=== PATIENT | male | born 1980 | race Caucasian/White ===

== ENCOUNTER 2019-01-08 20:35 | Emergency (ER) | payer OTHER ==
[2019-01-08 20:41] VITALS: BP 137/81; PULSE 86; RESP 18; TEMP 97.9
--- NOTE | 2019-01-08 21:44 | ED ---
General Adult HPI - General Chief complaint: Skin/Abscess/Foreign Body Stated complaint: hemorrhoids Time Seen by Provider: 01/08/19 20:53 Source: patient, RN notes reviewed, old records reviewed Mode of arrival: ambulatory Limitations: no limitations - History of Present Illness Initial comments: 38-year-old male patient presents ED chief complaint hemorrhoids. Patient forces has been bothering him for approximately one week. Denies any other complaints. Systemic: Pt denies fatigue, fever/chills, rash. Pt denies weakness, night sweats, weight loss. Neuro: Pt denies headache, visual disturbances, syncope or pre-syncope. HEENT: Pt denies ocular discharge or irritation, otalgia, rhinorrhea, pharyngitis or notable lymphadenopathy. Cardiopulmonary: Pt denies chest pain, SOB, heart palpitations, dyspnea on exertion. Abdominal/GI: Pt denies abdominal pain, n/v/d. : Pt denies dysuria, burning w/ urination, frequency/urgency. Denies new onset urinary or bowel incontinence. MSK: Pt denies myalgia, loss of strength or function in extremities. Neuro: Pt denies new onset weakness, paresthesias. - Related Data Allergies Allergy/AdvReac Type Severity Reaction Status Date / Time No Known Allergies Allergy Verified 01/08/19 20:41 Review of Systems ROS Statement: Those systems with pertinent positive or pertinent negative responses have been documented in the HPI. ROS Other: All systems not noted in ROS Statement are negative. Past Medical History Past Medical History: No Reported History History of Any Multi-Drug Resistant Organisms: None Reported Past Surgical History: No Surgical Hx Reported Past Psychological History: No Psychological Hx Reported Smoking Status: Current every day smoker Past Alcohol Use History: Daily Past Drug Use History: None Reported General Exam - General Exam Comments Initial Comments: Constitutional: NAD, AOX3, Pt has pleasant affect. HEENT: NC/AT, trachea midline, neck supple, no lymphadenopathy. Posterior pharynx non erythematous, without exudates. External ears appear normal, without discharge. Mucous membranes moist. Eyes PERRLA, EOM intact. There is no scleral icterus. No pallor noted. Cardiopulmonary: RRR, no murmurs, rubs or gallops, no JVD noted. Lungs CTAB in anterior and posterior archer. No peripheral edema. Abdominal exam: Abdomen soft and non-distended. Abdomen non-tender to palpation in all 4 quadrants. Bowel sounds active in LLQ. No hepatosplenomegaly. No ecchymosis Neuro: CN II-XII grossly intact. No nuchal rigidity. No raccon eyes, no pires sign, no hemotympanum. No cervical spinal tenderness. MSK: No posterior calf tenderness bilaterally, homans sign negative bilaterally. Posterior tibialis and radial pulse +2 bilaterally. Sensation intact in upper and lower extremities. Full active ROM in upper and lower extremities, 5/5 stregnth. Rectal: One internal hemorrhoid, two external hemorrhoid is noted. Nonthrombosed. Nonbleeding. Limitations: no limitations Course Vital Signs 01/08/19 20:39 Temperature 97.9 F Pulse Rate 86 Respiratory 18 Rate Blood Pressure 137/81 O2 Sat by Pulse 100 Oximetry Medical Decision Making - Medical Decision Making 38-year-old male patient presents in ED with chief complaint of one week of painful hemorrhoids. Patient did have a grade 2 hemorrhoids approximately 3 years in the past. Patient vital signs are stable, afebrile. Physical exam displayed one internal hemorrhoid, 2 external hemorrhoids are noted. Patient advised high-fiber diet, stool softeners, sitz baths. Patient be discharged with close GI and surgery follow-up. Case discussed and patient seen by Dr. Dietz. Disposition Clinical Impression: External hemorrhoid, Internal hemorrhage Disposition: HOME SELF-CARE Condition: Stable Instructions (If sedation given, give patient instructions): Sitz Bath (DC) Additional Instructions: Follow-up with primary care provider, GI or Gen. surgery tomorrow. Recommend high-fiber diet. Colace or MiraLAX. Sitz bath. Return to ER if condition worsens. Is patient prescribed a controlled substance at d/c from ED?: No Referrals: Oriana Hermosillo MD [Primary Care Provider] - 1-2 days
--- NOTE | 2019-01-08 21:50 | ED ---
Disposition Clinical Impression: External hemorrhoid, Internal hemorrhage Disposition: HOME SELF-CARE Condition: Stable Instructions (If sedation given, give patient instructions): Sitz Bath (DC) Additional Instructions: Follow-up with primary care provider, GI or Gen. surgery tomorrow. Recommend high-fiber diet. Colace or MiraLAX. Sitz bath. Return to ER if condition worsens. Is patient prescribed a controlled substance at d/c from ED?: No Referrals: Oriana Hermosillo MD [Primary Care Provider] - 1-2 days Maria Elena Curry MD [STAFF PHYSICIAN] - 1-2 days Alistair Hayden MD [STAFF PHYSICIAN] - 1-2 days
== END 2019-01-08 21:59 | disposition home or self-care (01) ==
LOC: EC 20:35
DX: K64.4 Residual hemorrhoidal skin tags (principal); K64.8 Other hemorrhoids; F17.200 Nicotine dependence, unspecified, uncomplicated
CPT/HCPCS: 99283

== ENCOUNTER 2020-06-22 07:53 | Inpatient (IN) | payer OTHER ==
[2020-06-22] MEDS ORDERED: methylPREDNISolone SOD SUCCI 125 MG/2 ML VIAL IV STA (08:05)
[2020-06-22] MEDS ORDERED: diphenhydrAMINE 50 MG/ML 1 ML VIAL IVP STA (08:05)
[2020-06-22] MEDS ORDERED: FAMOTIDINE 20 MG/2 ML VIAL IV STA (08:05)
--- NOTE | 2020-06-22 08:12 | ED ---
General Adult HPI - General Chief complaint: ENT Stated complaint: Throat swelling Time Seen by Provider: 06/22/20 07:58 Source: patient, RN notes reviewed Mode of arrival: wheelchair Limitations: no limitations - History of Present Illness Initial comments: Patient is a pleasant 40-year-old male presenting to the emergency department with concerns for throat swelling. Onset of symptoms was this morning. Patient did recently start lisinopril, proximal he 4 days ago. Patient states it is difficult to talk. Patient states is difficult to swallow. Patient does feel like there is some mild shortness of breath secondary to the swelling. No swelling of the tongue or face. No history of similar symptoms previously. No fevers. Patient felt fine when he went to bed last night. - Related Data Home Medications Medication Instructions Recorded Confirmed Dextroamphetamine/Amphetamine 10 - 20 mg PO TID PRN 06/22/20 06/22/20 [Adderall] Allergies Allergy/AdvReac Type Severity Reaction Status Date / Time No Known Allergies Allergy Verified 06/22/20 09:10 Review of Systems ROS Statement: Those systems with pertinent positive or pertinent negative responses have been documented in the HPI. ROS Other: All systems not noted in ROS Statement are negative. Constitutional: Denies: fever Eyes: Denies: eye pain ENT: Reports: as per HPI. Denies: ear pain Respiratory: Denies: cough Cardiovascular: Denies: chest pain Endocrine: Denies: fatigue Gastrointestinal: Denies: abdominal pain Genitourinary: Denies: dysuria Musculoskeletal: Denies: back pain Skin: Denies: rash Neurological: Denies: weakness Past Medical History Past Medical History: No Reported History History of Any Multi-Drug Resistant Organisms: None Reported Past Surgical History: No Surgical Hx Reported Past Psychological History: No Psychological Hx Reported Past Alcohol Use History: Daily Past Drug Use History: None Reported General Exam Limitations: no limitations General appearance: alert Head exam: Present: atraumatic Eye exam: Present: normal appearance, PERRL ENT exam: Present: other (Patient does have angioedema of the posterior pharynx and uvula. Patient does have muffled voice and difficulty swallowing. No angioedema of the tongue or lips or face.) Neck exam: Present: normal inspection, other (No swelling of the submandibular or neck region.). Absent: tenderness Respiratory exam: Present: normal lung sounds bilaterally Cardiovascular Exam: Present: regular rate, normal rhythm GI/Abdominal exam: Present: soft. Absent: tenderness Extremities exam: Present: normal inspection Neurological exam: Present: alert, CN II-XII intact Psychiatric exam: Present: normal affect, normal mood Skin exam: Present: normal color. Absent: erythema Course Vital Signs 06/22/20 06/22/20 07:54 09:13 Temperature 97.4 F L Pulse Rate 97 72 Respiratory 18 18 Rate Blood Pressure 127/87 131/92 O2 Sat by Pulse 97 98 Oximetry - Reevaluation(s) Reevaluation #1: 06/22/20 09:01 Patient reevaluated twice. No improvement with standard therapy. Dose of epinephrine will be tried. Case was discussed with Dr. cardenas, who will admit covering for Dr. Hermosillo 06/22/20 09:33 Patient again reevaluated with minimal improvement. Patient is able to open the back of his throat more. There is minimal improvement with swelling, more improvement on the left side. 06/22/20 10:01 Patient reevaluated with again minimal improvement. Exam essentially unchanged. Patient is able to speak with muffled voice. Patient states his nose feels there. Dr. Rodgers has been paged for consultation. 06/22/20 10:07 Case was discussed with Dr. Rodgers, who will consult. He does recommend adding Vaponefrin treatments. Icatibant not available Critical Care Time Critical Care Time: Yes Total Critical Care Time: 44 Disposition Clinical Impression: Angioedema Disposition: ADMITTED IP TO THIS [facility] Condition: Serious Is patient prescribed a controlled substance at d/c from ED?: No Referrals: Oriana Hermosillo MD [Primary Care Provider] - 1-2 days Decision Time: 10:02
[2020-06-22] MEDS ORDERED: NALOXONE 0.4 MG/ML 1 ML VIAL IV PRN (10:03)
[2020-06-22] MEDS ORDERED: RACEPINEPHRINE 2.25% NEB 0.5 ML NEBU INHALATION PRN (10:05)
[2020-06-22] MEDS ORDERED: RACEPINEPHRINE 2.25% NEB 0.5 ML NEBU INHALATION STA (10:05)
[2020-06-22] MEDS ORDERED: DEXTROSE 5%-0.45% NACL 1,000 ML IV SCH (10:15)
[2020-06-22] MEDS ORDERED: diphenhydrAMINE 50 MG/ML 1 ML VIAL IVP SCH ×2 (10:30→14:00)
[2020-06-22] MEDS ORDERED: ONDANSETRON 4 MG/2 ML VIAL IVP STA (10:43)
[2020-06-22] MEDS ORDERED: methylPREDNISolone SOD SUCCI 125 MG/2 ML VIAL IV SCH ×2 (12:00→14:00)
--- NOTE | 2020-06-22 12:56 | P.CNPUL ---
History of Present Illness Consult date: 06/22/20 Requesting physician: Raoul Pearce Reason for consult: dyspnea, other (Angioedema) Chief complaint: Dysphagia and shortness of breath History of present illness: A 40-year-old gentleman who follows with Dr. Hermosillo as his primary care provider. He has a history of ADHD currently on Adderall as needed, daily alcohol use. He had been having issues with high blood pressure and monitors at home. He states it was high last night and he took one of his 's blood pressure medications, presumably lisinopril. This morning he woke up with difficulty in swallowing, shortness of breath, difficult speaking. In the emergency room he was noted to have angioedema of the posterior pharynx and uvula. Patient's voice was muffled with difficulty in swallowing. No angioedema of the tongue lips or face thus far. He had been given IV Solu-Medrol 125 mg IVP, Benadryl 50 mg IVP, racemic epinephrine updraft treatment. He is seen today in consultation in the emergency room. Maintaining good O2 saturations in the 90s on room air. He's been afebrile. Hemodynamically stable. He is still having issues with swallowing, feels like there is a lump in the back of his throat. Review of Systems REVIEW OF SYSTEMS: CONSTITUTIONAL: Denies any recent significant weight loss or weight gain. EYES: Denies change in vision. EARS, NOSE, MOUTH, THROAT: Difficulty swallowing, difficulty talking. CARDIOVASCULAR: Denies chest pain, palpitations or syncopal episodes. RESPIRATORY: Significant for shortness of breath, no cough, congestion or hemoptysis. GASTROINTESTINAL: Denies change in appetite, denies abdominal pain GENITOURINARY: Denies hematuria, denies infections. MUSKULOSKELETAL: Denies pain, denies swelling. INTEGUMENTARY: Denies rash, denies eczema. NEUROLOGICAL: Denies recent memory loss, no recent seizure activity. PSYCHIATRIC: Denies anxiety, denies depression. HEMATOLOGIC/LYMPHATIC: Denies anemia, denies enlarged lymph nodes. l Past Medical History Past Medical History: No Reported History History of Any Multi-Drug Resistant Organisms: None Reported Past Surgical History: No Surgical Hx Reported Past Psychological History: No Psychological Hx Reported Past Alcohol Use History: Daily Past Drug Use History: None Reported Medications and Allergies Home Medications Medication Instructions Recorded Confirmed Type Dextroamphetamine/Amphetamine 10 - 20 mg PO TID PRN 06/22/20 06/22/20 History [Adderall] Allergies Allergy/AdvReac Type Severity Reaction Status Date / Time No Known Allergies Allergy Verified 06/22/20 09:10 Physical Exam Vitals: Vital Signs Temp Pulse Resp BP Pulse Ox 06/22/20 10:45 72 06/22/20 10:35 73 06/22/20 09:13 72 18 131/92 98 06/22/20 07:54 97.4 F L 97 18 127/87 97 Intake and Output 06/21/20 06/22/20 06/22/20 22:59 06:59 14:59 Other: Weight 81.647 kg GENERAL EXAM: Alert, pleasant 32-year-old gentleman, on room air, comfortable in no apparent distress. HEAD: Normocephalic. EYES: Normal reaction of pupils, equal size. NOSE: Clear with pink turbinates. THROAT: Mild edema of the posterior pharynx, uvula. NECK: No masses, no JVD. CHEST: No chest wall deformity. LUNGS: Equal air entry with no crackles, wheeze, rhonchi or dullness. CVS: S1 and S2 normal with no audible murmur, regular rhythm. ABDOMEN: No hepatosplenomegaly, normal bowel sounds, no guarding or rigidity. SPINE: No scoliosis or deformity SKIN: No rashes CENTRAL NERVOUS SYSTEM: No focal deficits, tone is normal in all 4 extremities. EXTREMITIES: There is no peripheral edema. No clubbing, no cyanosis. Peripheral pulses are intact. Assessment and Plan Assessment: 1 Acute angioedema of the posterior pharynx and uvula suspect secondary to NESHA inhibitor, taken from his 's prescription 2 Dysphagia secondary to above 3 History of ADHD, on Adderall as needed the outpatient setting 4 Daily alcohol use Plan: The patient was seen and evaluated by Dr. Lunsford Continue IV Solu-Medrol, Pepcid, Benadryl Continue racemic epinephrine inhalations Obtain a chest x-ray, labs Monitor closely in the ICU We will continue to follow and make further recommendations based on his clinical status I, the cosigning physician, performed a history & physical examination of the patient. Lungs sounds are clear. Maintaining good O2 saturations in the 90s on room air. I discussed the assessment and plan of care with my nurse practitioner, Afshan Haley. I attest to the above consultation as dictated by her. Time with Patient: Greater than 30
--- NOTE | 2020-06-22 13:20 | XR ---
EXAMINATION TYPE: XR chest 1V portable DATE OF EXAM: 06/22/2020 COMPARISON: NONE HISTORY: Shortness of breath TECHNIQUE: Single frontal view of the chest is obtained. FINDINGS: There is no focal air space opacity, pleural effusion, or pneumothorax seen. The cardiac silhouette size is within normal limits. The osseous structures are intact. IMPRESSION: No acute process.
--- NOTE | 2020-06-22 13:55 | P.HPIM ---
History of Present Illness H&P Date: 06/22/20 Chief Complaint: Tongue and throat swelling 40-year-old male presenting to the emergency department with concerns for throat swelling. Onset of symptoms was this morning. Patient did recently start lisinopril, proximal he 4 days ago. Patient states it is difficult to talk. Patient states is difficult to swallow. Patient does feel like there is some mild shortness of breath secondary to the swelling. No swelling of the tongue or face. No history of similar symptoms previously. No fevers. Patient felt fine when he went to bed last night. Upon presentation to ED patient revealed some swelling of the tongue and was only able to speak with muffled voice; patient was given epinephrine patient did result in slight improvement but patient continued to have muffled voice; valve inspector service is consulted and patient was recommended to be started on Vaponephrin after and treatments and admitted to ICU for close monitoring Review of Systems Constitutional: Denies: fever Eyes: Denies: eye pain ENT: Reports: as per HPI. Denies: ear pain Respiratory: Denies: cough Cardiovascular: Denies: chest pain Endocrine: Denies: fatigue Gastrointestinal: Denies: abdominal pain Genitourinary: Denies: dysuria Musculoskeletal: Denies: back pain Skin: Denies: rash Neurological: Denies: weakness Past Medical History Past Medical History: No Reported History History of Any Multi-Drug Resistant Organisms: None Reported Past Surgical History: No Surgical Hx Reported Past Psychological History: No Psychological Hx Reported Past Alcohol Use History: Daily Past Drug Use History: None Reported Medications and Allergies Home Medications Medication Instructions Recorded Confirmed Type Dextroamphetamine/Amphetamine 10 - 20 mg PO TID PRN 06/22/20 06/22/20 History [Adderall] Allergies Allergy/AdvReac Type Severity Reaction Status Date / Time No Known Allergies Allergy Verified 06/22/20 09:10 Physical Exam Vitals: Vital Signs Temp Pulse Resp BP Pulse Ox 06/22/20 07:54 97.4 F L 97 18 127/87 97 Intake and Output 06/21/20 06/22/20 06/22/20 22:59 06:59 14:59 Other: Weight 81.647 kg PHYSICAL EXAMINATION: GENERAL: The patient is alert and oriented x3, not in any acute distress. Well developed, well nourished. HEENT: Pupils are round and equally reacting to light. EOMI. No scleral icterus. No conjunctival pallor. Normocephalic, atraumatic. Patient does have angioedema of the posterior pharynx and uvula. Patient does have muffled voice and difficulty swallowing. No angioedema of the tongue or lips or face. CARDIOVASCULAR: S1 and S2 present. No murmurs, rubs, or gallops. PULMONARY: Chest is clear to auscultation, no wheezing or crackles. ABDOMEN: Soft, nontender, nondistended, normoactive bowel sounds. No palpable organomegaly. MUSCULOSKELETAL: No joint swelling or deformity. EXTREMITIES: No cyanosis, clubbing, or pedal edema. NEUROLOGICAL: Gross neurological examination did not reveal any focal deficits. SKIN: No rashes. Assessment and Plan Assessment: 1. Acute angioedema of posterior pharynx; possibly related to NESHA inhibitor - Patient is admitted to ICU for close monitoring; patient is started on IV Solu-Medrol at 60 mg IV every 8 hours, Pepcid 20 mg IV every 12 hours and Benadryl 50 mL grams IV every 6 hours 2. Dysphagia; related to acute angioedema; patient has been started on a clear liquid diet which will be advanced as angioedema results 3. ADHD; we will resume home dose of antral 4. Chronic alcohol use; we will add thiamine and folic acid and monitor closely for possible withdrawal DVT prophylaxis; SCDs CODE STATUS; full code
[2020-06-22] MEDS ORDERED: FOLIC ACID 1 MG TAB PO SCH (14:00)
[2020-06-22 14:17] VITALS: TEMP 98
[2020-06-22 16:58] VITALS: BP 132/78; PULSE 98; RESP 18
[2020-06-22] MEDS ORDERED: FAMOTIDINE 20 MG/2 ML VIAL IV SCH (21:00)
[2020-06-23] MEDS ORDERED: THIAMINE 100 MG TAB PO SCH (09:00)
== END 2020-06-22 16:51 | disposition left against medical advice (07) | DRG 916 ==
LOC: EC 07:53 → 2SICU 10:03 → 3SCARD 14:28
PROVIDERS: ADMIT Internal Medicine; ATTEND Internal Medicine
DX: T78.3XXA Angioneurotic edema, initial encounter (principal); F90.9 Attention-deficit hyperactivity disorder, unspecified type; Z20.822 Contact with and (suspected) exposure to COVID-19; T46.4X5A Adverse effect of angiotensin-converting-enzyme inhibitors, initial encounter; R13.10 Dysphagia, unspecified; R03.0 Elevated blood-pressure reading, without diagnosis of hypertension; Z79.899 Other long term (current) drug therapy; Z72.89 Other problems related to lifestyle
CPT/HCPCS: 71045; 87636; 96372; 96374; 96375; 99285

== ENCOUNTER 2020-06-22 21:39 | Observation (INO) | payer OTHER ==
--- NOTE | 2020-06-22 21:58 | ED ---
General Adult HPI - General Chief complaint: Allergic Reaction Stated complaint: Allergic Reaction Time Seen by Provider: 06/22/20 21:50 Source: patient Mode of arrival: ambulatory Limitations: no limitations - History of Present Illness Initial comments: Dictation was produced using [employer] dictation software. please excuse any grammatical, word or spelling errors. This patient was cared for during a federal and state declared state of emergency secondary to Covid 19 Chief Complaint: 40-year-old male presents back to the emergency department for swollen lips History of Present Illness: Patient is 40-year-old male U was seen here the emergency department earlier today. He was admitted to the ICU for angioedema. Patient left AGAINST MEDICAL ADVICE. When he got home his lips began to swell approximately him come back to the emergency department. Denies any swelling in his throat. No trouble swallowing. No abdominal pain or rash. Patient denies any trouble breathing. States most of his symptoms are localized to his lips. Patient takes lisinopril. He was admitted to the hospital for NESHA inhibitor- induced angioedema. The ROS documented in this emergency department record has been reviewed and confirmed by me. Those systems with pertinent positive or negative responses have been documented in the HPI. All other systems are other negative and/or noncontributory. PHYSICAL EXAM: General Impression: Alert and oriented x3, not in acute distress HEENT: Normocephalic atraumatic, extra-ocular movements intact, pupils equal and reactive to light bilaterally, mucous membranes moist, agitated of the lips, no uvular swelling. Patient is not drooling or showing any signs or respiratory distress Cardiovascular: Heart regular rate and rhythm Chest: Able to complete full sentences, no retractions, no tachypnea Abdomen: abdomen soft, non-tender, non-distended, no organomegaly Musculoskeletal: Pulses present and equal in all extremities, no peripheral edema Motor: no focal deficits noted Neurological: CN II-XII grossly intact, no focal motor or sensory deficits noted Skin: Intact with no visualized rashes Psych: Normal affect and mood ED course: 40-year-old male presents back to the emergency department for angioedema. He signed out AMA earlier. Vital signs upon arrival shows heart rate of 106, rest of vital signs within acceptable limits. Does not appear clinically that it involves his upper airway. His lips are significantly swollen. Case is discussed with Dr. Lunsford who evaluated the patient earlier today. Does not recommend ICU admission at this time. He states that he should just be admitted to the floor with [id number] Solu-Medrol, Benadryl and Pepcid. Case discussed with Dr. Ngo was willing to accept patients care. Patient is agreeable to admission. - Related Data Home Medications Medication Instructions Recorded Confirmed Dextroamphetamine/Amphetamine 10 - 20 mg PO TID PRN 06/22/20 06/22/20 [Adderall] Allergies Allergy/AdvReac Type Severity Reaction Status Date / Time No Known Allergies Allergy Verified 06/22/20 21:46 Review of Systems ROS Statement: Those systems with pertinent positive or pertinent negative responses have been documented in the HPI. ROS Other: All systems not noted in ROS Statement are negative. Past Medical History Past Medical History: No Reported History History of Any Multi-Drug Resistant Organisms: None Reported Past Surgical History: No Surgical Hx Reported Past Psychological History: No Psychological Hx Reported Smoking Status: Current every day smoker Past Alcohol Use History: Daily Past Drug Use History: None Reported General Exam Limitations: no limitations Course Vital Signs 06/22/20 21:42 Temperature 98.0 F Pulse Rate 106 H Respiratory 20 Rate Blood Pressure 145/90 O2 Sat by Pulse 96 Oximetry Disposition Clinical Impression: Angioedema Disposition: ADMITTED IP TO THIS HOSP Condition: Fair Referrals: Oriana Hermosillo MD [Primary Care Provider] - 1-2 days Decision Time: 22:16
[2020-06-22] MEDS ORDERED: TRANEXAMIC ACID 1,000 MG in SODIUM CHLORIDE 0.9% 100 ML IVPB ONE (22:00)
[2020-06-22] MEDS ORDERED: methylPREDNISolone SOD SUCCI 125 MG/2 ML VIAL IV STA (22:01)
[2020-06-22] MEDS ORDERED: diphenhydrAMINE 50 MG/ML 1 ML VIAL IVP STA (22:01)
[2020-06-22] MEDS ORDERED: FAMOTIDINE 20 MG/2 ML VIAL IV STA (22:01)
[2020-06-22] MEDS ORDERED: LORazepam 2 MG/ML INJ IV PRN ×3 (22:11)
[2020-06-22] MEDS ORDERED: NALOXONE 0.4 MG/ML 1 ML VIAL IV PRN (22:13)
[2020-06-22 23:15] LABS: Basophils % (A) 0 %; Eosinophils # (A) 0.1 k/uL (0-0.7); Eosinophils % (A) 1 %; HCT 40.9 % (39.0-53.0); HGB 14.2 gm/dL (13.0-17.5); Lymphocytes # (A) 0.3 k/uL (1.0-4.8); Lymphocytes % (A) 5 %; MCH 34.5 pg (25.0-35.0); MCHC 34.8 g/dL (31.0-37.0); MCV 99.1 fL (80.0-100.0); Mean Platelet Volume 7.3; Monocytes # (A) 0.1 k/uL (0-1.0); Monocytes % (A) 2 %; Neutrophils # (A) 5.8 k/uL (1.3-7.7); Neutrophils % (A) 91 %; Platelet Count 171 k/uL (150-450); RBC 4.12 m/uL (4.30-5.90); RDW 13.3 % (11.5-15.5); WBC 6.4 k/uL (3.8-10.6)
[2020-06-22 23:35] LABS: African American GFR (CKD) >90 (>60 ml/min/1.73 sqM); Alcohol 72 mg/dL; Anion Gap 13 mmol/L; Blood Urea Nitrogen 8 mg/dL (9-20); Calcium 9.2 mg/dL (8.4-10.2); Carbon Dioxide 20 mmol/L (22-30); Chloride 101 mmol/L (98-107); Glucose 128 mg/dL (74-99); Non-African American GFR(CKD) >90 (>60 ml/min/1.73 sqM); Potassium 4.5 mmol/L (3.5-5.1); Sodium 134 mmol/L (137-145)
[2020-06-23] MEDS: SODIUM CHLORIDE 0.9% 1,000 ML IV SCH ×3 (00:15→22:00)
[2020-06-23] MEDS ORDERED: NICOTINE 14MG/24HR PATCH TRANSDERM SCH (09:45)
--- NOTE | 2020-06-23 10:50 | P.HPIM ---
History of Present Illness 40-year-old male was admitted for angioedema to ICU and subsequently left AGAINST MEDICAL ADVICE comes back again with worsening of swelling in the lips and throat. Patient was given a dose of Solu-Medrol patient has significant imp rovement in his swelling. His angioedema was believed to be secondary to lisinopril. Patient does drink alcohol on daily basis about 6-8 beers, is presently having withdrawals and patient is presently on alcohol withdrawal CIKS Ativan protocol. Patient is also on thiamine multivitamin supplementation patient will be monitored overnight patient is willing to quit alcohol and smoking. Patient admits to smoking about three fourth pack per day and is requesting nicotine patch Review of Systems REVIEW OF SYSTEMS: CONSTITUTIONAL: No fever, no malaise, no fatigue. HEENT: No recent visual problems or hearing problems. CARDIOVASCULAR: No chest pain, orthopnea, PND, no palpitations, no syncope. PULMONARY: No shortness of breath, no cough, no hemoptysis. GASTROINTESTINAL: No diarrhea, no nausea, no vomiting, no abdominal pain. NEUROLOGICAL: No headaches, no weakness, no numbness. HEMATOLOGICAL: Denies any bleeding or petechiae. GENITOURINARY: Denies any burning micturition, frequency, or urgency. MUSCULOSKELETAL/RHEUMATOLOGICAL: Denies any joint pain, swelling, or any muscle pain. ENDOCRINE: Denies any polyuria or polydipsia. The rest of the 14-point review of systems is negative. Past Medical History Past Medical History: No Reported History History of Any Multi-Drug Resistant Organisms: None Reported Past Surgical History: No Surgical Hx Reported Past Psychological History: No Psychological Hx Reported Smoking Status: Current every day smoker Past Alcohol Use History: Daily Past Drug Use History: None Reported Medications and Allergies Home Medications Medication Instructions Recorded Confirmed Type Dextroamphetamine/Amphetamine 10 - 20 mg PO TID PRN 06/22/20 06/22/20 History [Adderall] Allergies Allergy/AdvReac Type Severity Reaction Status Date / Time No Known Allergies Allergy Verified 06/22/20 21:46 Physical Exam Vitals: Vital Signs Temp Pulse Pulse Resp BP Pulse Ox 06/23/20 08:11 98.1 F 73 72 18 98 06/23/20 03:15 98.2 F 105 H 18 130/90 96 06/23/20 00:00 98 20 138/91 96 06/22/20 23:22 92 16 126/78 98 06/22/20 22:34 96 20 128/87 97 06/22/20 21:42 98.0 F 106 H 20 145/90 96 Intake and Output 06/22/20 06/23/20 06/23/20 22:59 06:59 14:59 Other: Weight 76.204 kg PHYSICAL EXAMINATION: GENERAL: The patient is alert and oriented x3, not in any acute distress. Well developed, well nourished. HEENT: Pupils are round and equally reacting to light. EOMI. No scleral icterus. No conjunctival pallor. Normocephalic, atraumatic. No pharyngeal erythema. No thyromegaly. Patient does have lip swelling doesn't have much shelf will for oropharyngeal edema. Patient airway is patent CARDIOVASCULAR: S1 and S2 present. No murmurs, rubs, or gallops. PULMONARY: Chest is clear to auscultation, no wheezing or crackles. ABDOMEN: Soft, nontender, nondistended, normoactive bowel sounds. No palpable o rganomegaly. MUSCULOSKELETAL: No joint swelling or deformity. EXTREMITIES: No cyanosis, clubbing, or pedal edema. NEUROLOGICAL: Gross neurological examination did not reveal any focal deficits. SKIN: No rashes. Results CBC & Chem 7: 06/22/20 23:00 06/22/20 23:00 Labs: Abnormal Lab Results - Last 24 Hours (Table) 06/22/20 06/22/20 Range/Units 23:00 23:00 RBC 4.12 L (4.30-5.90) m/uL Lymphocytes # 0.3 L (1.0-4.8) k/uL Sodium 134 L (137-145) mmol/L Carbon Dioxide 20 L (22-30) mmol/L BUN 8 L (9-20) mg/dL Creatinine 0.57 L (0.66-1.25) mg/dL Glucose 128 H (74-99) mg/dL Assessment and Plan Plan: -Angioedema: Secondary to leg lisinopril which is improving patient will be started on twice a day of prednisone along with antihistamine. -Alcohol withdrawal: Patient will be continued on Ativan CIWA protocol will monitor for any withdrawal symptoms. -Hypovolemic hyponatremia patient was started on IV fluids -Alcohol abuse history: Counseling was provided -Nicotine use: Counseling was provided patient will be started on nicotine patch -Due to prophylaxis early ambulation -GI prophylaxis with Pepcid -Hypertension patient blood pressure monitored for now patient will not be started on any antidepressant medications at this time.
[2020-06-23] MEDS: FAMOTIDINE 20 MG TAB PO SCH ×2 (11:52→19:49)
[2020-06-23] MEDS: predniSONE 20 MG TAB PO SCH ×2 (11:52→19:50)
[2020-06-23] MEDS: THIAMINE 100 MG TAB PO SCH ×2 (11:52→16:51)
[2020-06-23] MEDS: LORATADINE 10 MG TAB PO SCH ×2 (11:52→19:50)
[2020-06-24 07:42] VITALS: BP 122/83; PULSE 74; RESP 17; TEMP 97.4
--- NOTE | 2020-06-24 09:03 | P.DS ---
Providers Date of admission: 06/22/20 22:15 Attending physician: Reji Ngo MD Primary care physician: [facility] Course: 40-year-old male was admitted for angioedema to ICU and subsequently left AGAINST MEDICAL ADVICE comes back again with worsening of swelling in the lips and throat. Patient was given a dose of Solu-Medrol patient has significant improvement in his swelling. His angioedema was believed to be secondary to lisinopril. Patient does drink alcohol on daily basis about 6-8 beers, is presently having withdrawals and patient is presently on alcohol withdrawal CIWA Ativan protocol. Patient is also on thiamine multivitamin supplementation patient will be monitored overnight patient is willing to quit alcohol and smoking. Patient admits to smoking about three fourth pack per day and is requesting nicotine patch. 06/24/2020 Patient doesn't have any significant withdrawals at this time. I initially gave him a tapering dose of Librium but the patient said he has control problems because of which he may end of drinking with Librium because of that reason Librium was discontinued although he says he is motivated to quit drinking and smoking. Patient will be discharged on Medrol Dosepak and Pepcid along with thiamine supplementation. Patient cannot take angiotensin receptor blockers patient is ALLERGIC to roger inhibitors PHYSICAL EXAMINATION: GENERAL: The patient is alert and oriented x3, not in any acute distress. Well developed, well nourished. HEENT: Pupils are round and equally reacting to light. EOMI. No scleral icterus. No conjunctival pallor. Normocephalic, atraumatic. No pharyngeal erythema. No t hyromegaly. Lips swelling and completely resolved CARDIOVASCULAR: S1 and S2 present. No murmurs, rubs, or gallops. PULMONARY: Chest is clear to auscultation, no wheezing or crackles. ABDOMEN: Soft, nontender, nondistended, normoactive bowel sounds. No palpable organomegaly. MUSCULOSKELETAL: No joint swelling or deformity. EXTREMITIES: No cyanosis, clubbing, or pedal edema. NEUROLOGICAL: Gross neurological examination did not reveal any focal deficits. SKIN: No rashes. Assessment and Plan Plan: -Angioedema: Secondary to leg lisinopril improved and the patient was discharged on Medrol Dosepak -Alcohol withdrawal: He doesn't have any significant withdrawal -Hypovolemic hyponatremia received IV fluids -Alcohol abuse history: Counseling was provided -Nicotine use: We discharged on nicotine patch -GI prophylaxis with Pepcid -Hypertension not requiring any antidepressants patient need to monitor his blood pressures as an outpatient if needed patient can be started on a calcium channel brenda. Patient Condition at Discharge: Fair Plan - Discharge Summary Discharge Rx Participant: No New Discharge Prescriptions: New methylPREDNISolone Dose Pack [Medrol Dose Pack] 4 mg PO DIRECTED #21 package Thiamine [Vitamin B-1] 100 mg PO DAILY #30 tablet Famotidine [Pepcid] 20 mg PO BID #20 tablet No Action Dextroamphetamine/Amphetamine [Adderall] 10 - 20 mg PO TID PRN PRN Reason: adhd Discharge Medication List Dextroamphetamine/Amphetamine [Adderall] 10 - 20 mg PO TID PRN 06/22/20 [History] Famotidine [Pepcid] 20 mg PO BID #20 tablet 06/24/20 [Rx] Thiamine [Vitamin B-1] 100 mg PO DAILY #30 tablet 06/24/20 [Rx] methylPREDNISolone Dose Pack [Medrol Dose Pack] 4 mg PO DIRECTED #21 package 06/24/20 [Rx] Follow up Appointment(s)/Referral(s): Oriana Hermosillo MD [Primary Care Provider] - 06/30/20 9:10 am Patient Instructions/Handouts: Angioedema (ED) Discharge Disposition: HOME SELF-CARE
[2020-06-24] MEDS: LORATADINE 10 MG TAB PO SCH (09:13)
[2020-06-24] MEDS: FAMOTIDINE 20 MG TAB PO SCH (09:13)
[2020-06-24] MEDS: predniSONE 20 MG TAB PO SCH (09:13)
== END 2020-06-24 09:27 | disposition home or self-care (01) ==
LOC: EC 21:39 → 3SCARD 22:15 → INTOOBSV 22:15 → 4SSUR 06-23 12:14
PROVIDERS: ADMIT Internal Medicine; ATTEND Internal Medicine
DX: T78.3XXA Angioneurotic edema, initial encounter (principal); T46.4X5A Adverse effect of angiotensin-converting-enzyme inhibitors, initial encounter; F10.239 Alcohol dependence with withdrawal, unspecified; Y90.3 Blood alcohol level of 60-79 mg/100 ml; I10 Essential (primary) hypertension; E86.1 Hypovolemia; E87.1 Hypo-osmolality and hyponatremia; F17.210 Nicotine dependence, cigarettes, uncomplicated
CPT/HCPCS: 96376; 96365; 96375 ×2; 99285; 80048; 85025; 80320; G0378 ×4; S4990; J2060; J1200; J2930; J7512 ×2

== ENCOUNTER 2020-11-21 16:46 | Emergency (ER) | payer OTHER ==
[2020-11-21 17:00] VITALS: BP 148/101; PULSE 83; RESP 18; TEMP 98.5
--- NOTE | 2020-11-21 17:36 | ED ---
Extremity Problem HPI - General Chief complaint: Extremity Problem,Nontraumatic Stated complaint: toe pain Time Seen by Provider: 11/21/20 17:09 Source: patient, RN notes reviewed Mode of arrival: ambulatory Limitations: no limitations - History of Present Illness Initial comments: Patient a 40-year-old male presenting to the emergency department with c omplaints of bilateral toe pain over the past week. Patient states he was off of work over the summer, he started back to work last week and has to wear steel toed boots. He states after 2 days of wearing the last week he is toes became painful, he feels like both his big toenails are coming off. He believes he started getting infection underneath his toenails. He noticed some redness and some mild swelling starting over the past couple days. Denies any fevers or chills, no nausea or vomiting. He is concerned that he will not be a little back to work. States he did buy bigger work boots. He has no further complaints at this time. - Related Data Home Medications Medication Instructions Recorded Confirmed Dextroamphetamine/Amphetamine 10 - 20 mg PO TID PRN 06/22/20 06/22/20 [Adderall] Previous Rx's Medication Instructions Recorded Famotidine [Pepcid] 20 mg PO BID #20 tablet 06/24/20 Thiamine [Vitamin B-1] 100 mg PO DAILY #30 tablet 06/24/20 methylPREDNISolone Dose Pack 4 mg PO DIRECTED #21 package 06/24/20 [Medrol Dose Pack] Cephalexin [Keflex] 500 mg PO Q6HR 5 Days #20 cap 11/21/20 Allergies Allergy/AdvReac Type Severity Reaction Status Date / Time No Known Allergies Allergy Verified 11/21/20 17:00 Review of Systems ROS Statement: Those systems with pertinent positive or pertinent negative responses have been documented in the HPI. ROS Other: All systems not noted in ROS Statement are negative. Past Medical History Past Medical History: No Reported History History of Any Multi-Drug Resistant Organisms: None Reported Past Surgical History: No Surgical Hx Reported Past Anesthesia/Blood Transfusion Reactions: No Reported Reaction Past Psychological History: No Psychological Hx Reported Smoking Status: Current every day smoker Past Alcohol Use History: Occasional Past Drug Use History: None Reported - Past Family History Father Family Medical History: Hypertension Mother Family Medical History: Hypertension General Exam - General Exam Comments Initial Comments: GENERAL: Patient is well-developed and well-nourished. Patient is nontoxic and in no acute distress. HEAD: Atraumatic, normocephalic. EYES: Pupils equal round and reactive to light, extraocular movements intact, sclera anicteric, conjunctiva are normal. Eyelids were unremarkable. LUNGS: Unlabored respirations. Breath sounds clear to auscultation bilaterally and equal. No wheezes rales or rhonchi. HEART: Regular rate and rhythm without murmurs, rubs or gallops. ABDOMEN: Soft, nontender, normoactive bowel sounds. MUSCULOSKELETAL: Normal extremities with adequate strength and normal range of motion, no pitting or edema. No clubbing or cyanosis. NEUROLOGICAL: Patient is alert and oriented x 3. Normal speech, normal gait. SKIN: Warm, Dry, normal turgor. Patient has some very mild erythema around the bilateral big toes, no spreading erythema, no erythema bilateral feet. They're not warm to the touch, no obvious swelling. Dorsal pedis pulses are normal bilaterally. Cap refill is also normal in all 10 toes. The right great toenail appears loose but is well attached at the base. Limitations: no limitations Course Vital Signs 11/21/20 16:55 Temperature 98.5 F Pulse Rate 83 Respiratory 18 Rate Blood Pressure 148/101 O2 Sat by Pulse 98 Oximetry Medical Decision Making - Medical Decision Making Patient is a 40-year-old male presenting with bilateral toe pain after wearing his steel toe boots last week for 2 days, after not wearing them for the last 3- 4 months. Patient's exam is consistent with a very mild cellulitis of bilateral big toes. No fevers, exam is otherwise unremarkable. He was concerned that the toenails needed. Moves, both toenails are firmly attached, do not feel like removal is appropriate at this time. I will refer him to podiatry. I will start him on Keflex for some mild cellulitis. He can take Tylenol Motrin as needed for pain relief. He is agreeable as planned care. He is requesting a work note, did give him one. He is stable for discharge. Disposition Clinical Impression: Toe pain, bilateral, Cellulitis of right toe Disposition: HOME SELF-CARE Condition: Stable Instructions (If sedation given, give patient instructions): Cellulitis (ED) Additional Instructions: Please return to the Emergency Department if symptoms worsen or any other concerns. Take antibiotics as prescribed. Use ice to the feet, elevation above the heart level, tylenol or motrin for pain. Follow-up with flavorings compounder. Prescriptions: Cephalexin [Keflex] 500 mg PO Q6HR 5 Days #20 cap Is patient prescribed a controlled substance at d/c from ED?: No Referrals: None,Stated [Primary Care Provider] - 1-2 days Cristopher Elizabeth DPM [STAFF PHYSICIAN] - 1-2 days Time of Disposition: 17:36
[2020-11-21] MEDS ORDERED: ACET/COD 300 MG/30 MG STARTER PACK 6 TAB BTL PO STA (17:44)
== END 2020-11-21 17:58 | disposition home or self-care (01) ==
LOC: EC 16:46
DX: L03.031 Cellulitis of right toe (principal); M79.675 Pain in left toe(s); F17.200 Nicotine dependence, unspecified, uncomplicated; Z79.899 Other long term (current) drug therapy; Z82.49 Family history of ischemic heart disease and other diseases of the circulatory system
CPT/HCPCS: 99283

== ENCOUNTER 2021-09-22 19:59 | Emergency (ER) | payer OTHER ==
[2021-09-22 20:03] VITALS: BP 157/98; PULSE 98; RESP 18; TEMP 98.3
--- NOTE | 2021-09-22 20:21 | ED ---
General Adult HPI - General Chief complaint: Alcohol Stated complaint: ETOH withdrawal Time Seen by Provider: 09/22/21 20:04 Source: patient, family, RN notes reviewed Mode of arrival: wheelchair - History of Present Illness Initial comments: Patient is a 41-year-old male presents to the emergency room with acute alcohol intoxication reporting attempts of wanting to become sober but reports that he is unable to do so at home. His last drink was proximally 2 hours prior to coming to the emergency room. He is tearful upon exam when discussing his alcoholism and need for sobriety and reports that he attempted to become sober at home going through withdrawals approximately 3 one month ago which lasted approximately 3 days but he quickly began drinking again. He lives at home with his parents who care for his young child. He denies any suicidal or homicidal thoughts. Hallucinations or delusions. He does report having hiccups often but denies any abdominal pain nausea or vomiting. He reports a past medical history significant for borderline diabetes without a diagnosis of diabetes; he is not following with primary care provider currently. - Related Data Home Medications Medication Instructions Recorded Confirmed Dextroamphetamine/Amphetamine 10 - 20 mg PO TID PRN 06/22/20 06/22/20 [Adderall] Previous Rx's Medication Instructions Recorded Famotidine [Pepcid] 20 mg PO BID #20 tablet 06/24/20 Thiamine [Vitamin B-1] 100 mg PO DAILY #30 tablet 06/24/20 methylPREDNISolone Dose Pack 4 mg PO DIRECTED #21 package 06/24/20 [Medrol Dose Pack] Cephalexin [Keflex] 500 mg PO Q6HR 5 Days #20 cap 11/21/20 Allergies Allergy/AdvReac Type Severity Reaction Status Date / Time No Known Allergies Allergy Verified 09/22/21 20:02 Review of Systems ROS Statement: Those systems with pertinent positive or pertinent negative responses have been documented in the HPI. ROS Other: All systems not noted in ROS Statement are negative. Past Medical History Past Medical History: No Reported History History of Any Multi-Drug Resistant Organisms: None Reported Past Surgical History: No Surgical Hx Reported Past Anesthesia/Blood Transfusion Reactions: No Reported Reaction Past Psychological History: No Psychological Hx Reported Smoking Status: Current every day smoker Past Alcohol Use History: Abuse, Daily Past Drug Use History: None Reported - Past Family History Father Family Medical History: Hypertension Mother Family Medical History: Hypertension General Exam General appearance: alert, appears intoxicated Head exam: Present: atraumatic, normocephalic, normal inspection Eye exam: Present: normal appearance, PERRL, EOMI. Absent: scleral icterus, conjunctival injection, periorbital swelling ENT exam: Present: normal exam, mucous membranes moist Neck exam: Present: normal inspection Respiratory exam: Present: normal lung sounds bilaterally. Absent: respiratory distress, wheezes, rales, rhonchi, stridor Cardiovascular Exam: Present: regular rate, normal rhythm, normal heart sounds. Absent: systolic murmur, diastolic murmur, rubs, gallop, clicks GI/Abdominal exam: Present: soft, normal bowel sounds. Absent: distended, tenderness, guarding, rebound, rigid Extremities exam: Present: normal inspection, full ROM, normal capillary refill. Absent: tenderness, pedal edema, joint swelling, calf tenderness Back exam: Present: normal inspection Neurological exam: Present: alert, oriented X3, abnormal gait (Due to acute intoxication) Psychiatric exam: Present: other (Labile) Skin exam: Present: warm, dry, intact, normal color. Absent: rash Course Vital Signs 09/22/21 19:59 Temperature 98.3 F Pulse Rate 98 Respiratory 18 Rate Blood Pressure 157/98 O2 Sat by Pulse 97 Oximetry Medical Decision Making - Medical Decision Making Patient acutely intoxicated wishing to be treated for alcohol withdrawals. Will check CMP, CBC, serum alcohol level, urine drug screen and coags. Will start on banana bag and monitor for withdrawal symptoms. No need for further treatment at this time. Serum alcohol elevated at 492. Dr. Gonzales with some positions notified for observation admission for acute alcohol intoxication and possible alcohol withdrawals. Dr. everett dissected admission however prior to admission orders being written patient requesting to leave AMA with his father who is his boom truck driver. Patient's father and provider attempted to discuss concerns with patient and need for hospitalization however patient was adamant that he wishes to leave the hospital. He is aware of the risks associated with leaving AMA with an elevated serum alcohol level including the potential for and still wishes to leave AMA. Case discussed with Dr. Cui. - Lab Data Lab Results 09/22/21 09/22/21 Range/Units 20:36 20:49 Urine Opiates Screen Not Detected (NotDetected) Ur Oxycodone Screen Not Detected (NotDetected) Urine Methadone Screen Not Detected (NotDetected) Ur Propoxyphene Screen Not Detected (NotDetected) Ur Barbiturates Screen Not Detected (NotDetected) U Tricyclic Antidepress Not Detected (NotDetected) Ur Phencyclidine Scrn Not Detected (NotDetected) Ur Amphetamines Screen Not Detected (NotDetected) U Methamphetamines Scrn Not Detected (NotDetected) U Benzodiazepines Scrn Not Detected (NotDetected) Urine Cocaine Screen Not Detected (NotDetected) U Marijuana (THC) Screen Not Detected (NotDetected) Serum Alcohol 492 H* mg/dL Disposition Clinical Impression: Alcoholic intoxication Disposition: Left Against Medical Advice Is patient prescribed a controlled substance at d/c from ED?: No Referrals: None,Stated [Primary Care Provider] - 1-2 days Time of Disposition: 21:37
[2021-09-22] MEDS ORDERED: SODIUM CHLORIDE 0.9% 1,000 ML with MVI, ADULT NO.4 WITH VIT K 10 ML, THIAMINE 100 MG, F... IV ONE ×4 (20:40)
[2021-09-22 21:12] LABS: Amphetamine Screen,Urine Not Detected (NotDetected); Barbiturate Screen,Urine Not Detected (NotDetected); Benzodiazepines Screen,Urine Not Detected (NotDetected); Cocaine Screen,Urine Not Detected (NotDetected); Methadone Screen, Urine Not Detected (NotDetected); Opiate Screen,Urine Not Detected (NotDetected); Oxycodone Screen, Urine Not Detected (NotDetected); Phencyclidine Screen,Urine Not Detected (NotDetected); Tricyclic Antidepressant,Urine Not Detected (NotDetected); Urn Cannabinoid Scrn Not Detected (NotDetected)
[2021-09-23 08:06] LABS: Basophils # (A) 0.1 k/uL (0-0.2); Basophils % (A) 1 %; Eosinophils # (A) 0.1 k/uL (0-0.7); Eosinophils % (A) 1 %; HCT 33.8 % (39.0-53.0); HGB 11.1 gm/dL (13.0-17.5); Lymphocytes # (A) 1.2 k/uL (1.0-4.8); Lymphocytes % (A) 27 %; MCH 35.5 pg (25.0-35.0); MCHC 32.8 g/dL (31.0-37.0); MCV 108.1 fL (80.0-100.0); Macrocytosis Marked; Mean Platelet Volume 9.2; Monocytes # (A) 0.3 k/uL (0-1.0); Monocytes % (A) 6 %; Neutrophils # (A) 2.7 k/uL (1.3-7.7); Neutrophils % (A) 61 %; Platelet Count 203 k/uL (150-450); RBC 3.13 m/uL (4.30-5.90); RDW 15.6 % (11.5-15.5); WBC 4.5 k/uL (3.8-10.6)
[2021-09-23 08:29] LABS: ALT 25 U/L (4-49); AST 84 U/L (17-59); African American GFR (CKD) >90 (>60 ml/min/1.73 sqM); Albumin 3.7 g/dL (3.5-5.0); Alkaline Phosphatase 117 U/L (38-126); Anion Gap 11 mmol/L; Blood Urea Nitrogen 9 mg/dL (9-20); Carbon Dioxide 22 mmol/L (22-30); Chloride 104 mmol/L (98-107); Glucose 127 mg/dL (74-99); Non-African American GFR(CKD) >90 (>60 ml/min/1.73 sqM); Potassium 3.6 mmol/L (3.5-5.1); Sodium 137 mmol/L (137-145); Total Bilirubin 0.1 mg/dL (0.2-1.3); Total Protein 6.7 g/dL (6.3-8.2)
== END 2021-09-22 21:09 | disposition left against medical advice (07) ==
LOC: EC 19:59
DX: F10.129 Alcohol abuse with intoxication, unspecified (principal); F10.139 Alcohol abuse with withdrawal, unspecified; F17.200 Nicotine dependence, unspecified, uncomplicated; Z53.29 Procedure and treatment not carried out because of patient's decision for other reasons
CPT/HCPCS: 99284; 36415; 80053; 85025; 80306; G0480; J3411; 80320

== ENCOUNTER 2021-09-24 17:07 | Inpatient (IN) | payer OTHER ==
[2021-09-24] MEDS ORDERED: SODIUM CHLORIDE 0.9% 1,000 ML IV STA (19:37)
[2021-09-24 19:42] LABS: Anisocytosis Slight; Basophils % (A) 1 %; Eosinophils % (A) 1 %; HCT 41.9 % (39.0-53.0); HGB 13.9 gm/dL (13.0-17.5); Lymphocytes # (A) 1.2 k/uL (1.0-4.8); Lymphocytes % (A) 26 %; MCHC 33.3 g/dL (31.0-37.0); Macrocytosis Marked; Mean Platelet Volume 8.6; Monocytes # (A) 0.2 k/uL (0-1.0); Monocytes % (A) 5 %; Neutrophils # (A) 2.8 k/uL (1.3-7.7); Neutrophils % (A) 64 %; Platelet Count 165 k/uL (150-450); RBC 3.86 m/uL (4.30-5.90); RDW 16.3 % (11.5-15.5); WBC 4.5 k/uL (3.8-10.6)
[2021-09-24 19:46] LABS: ALT 24 U/L (4-49); AST 81 U/L (17-59); African American GFR (CKD) >90 (>60 ml/min/1.73 sqM); Albumin 4.7 g/dL (3.5-5.0); Alkaline Phosphatase 160 U/L (38-126); Amylase 42 U/L (30-110); Anion Gap 20 mmol/L; Blood Urea Nitrogen 7 mg/dL (9-20); Calcium 8.4 mg/dL (8.4-10.2); Carbon Dioxide 22 mmol/L (22-30); Chloride 91 mmol/L (98-107); Glucose 80 mg/dL (74-99); Lipase 85 U/L (23-300); Non-African American GFR(CKD) >90 (>60 ml/min/1.73 sqM); Potassium 3.6 mmol/L (3.5-5.1); Sodium 133 mmol/L (137-145); Total Bilirubin 0.7 mg/dL (0.2-1.3)
--- NOTE | 2021-09-24 19:56 | ED ---
General Adult HPI - General Chief complaint: Nausea/Vomiting/Diarrhea Stated complaint: ETOH withdrawal Time Seen by Provider: 09/24/21 19:36 Source: patient Mode of arrival: ambulatory Limitations: no limitations - History of Present Illness Initial comments: Dictation was produced using [employer] dictation software. please excuse any grammatical, word or spelling errors. Chief Complaint: 41-year-old male presents emergency department for alcohol withdrawals History of Present Illness: A 11-year-old male he's been a daily alcohol user for the last 8 years. Patient states he drinks half a fifth of vodka and/or up to 12 beers on a daily basis. Since yesterday's been having symptoms of nausea palpitations. Patient is accompanied by father. Patient does also felt tremulous. Last alcohol intake was yesterday. Patient is not tried to quit alcohol. Patient states that he has never been admitted to the hospital for occult withdrawal in the past. The ROS documented in this emergency department record has been reviewed and confirmed by me. Those systems with pertinent positive or negative responses have been documented in the HPI. All other systems are other negative and/or noncontributory. PHYSICAL EXAM: General Impression: Alert and oriented x3, not in acute distress, mildly tremulous HEENT: Normocephalic atraumatic, extra-ocular movements intact, pupils equal and reactive to light bilaterally, mucous membranes moist. Cardiovascular: Heart regular rate and rhythm Chest: Able to complete full sentences, no retractions, no tachypnea Abdomen: abdomen soft, non-tender, non-distended, no organomegaly Musculoskeletal: Pulses present and equal in all extremities, no peripheral edema Motor: no focal deficits noted Neurological: CN II-XII grossly intact, no focal motor or sensory deficits noted Skin: Intact with no visualized rashes Psych: Normal affect and mood ED course: 41 yo Male presents emergency department for alcohol withdrawals. Vital signs upon arrival shows mild tachycardia at 109. Rest vital signs within acceptable limits. Laboratory evaluation obtained. CBC within acceptable limits. Metabolic panel is within acceptable limits. Slight hypomagnesemia with level I.4. Serum alcohol is 273. Patient is high risk for alcohol withdrawal. Patient will be admitted for [facility] monitoring and treatment. - Related Data Home Medications Medication Instructions Recorded Confirmed Dextroamphetamine/Amphetamine 10 - 20 mg PO TID PRN 06/22/20 06/22/20 [Adderall] Previous Rx's Medication Instructions Recorded Famotidine [Pepcid] 20 mg PO BID #20 tablet 06/24/20 Thiamine [Vitamin B-1] 100 mg PO DAILY #30 tablet 06/24/20 methylPREDNISolone Dose Pack 4 mg PO DIRECTED #21 package 06/24/20 [Medrol Dose Pack] Cephalexin [Keflex] 500 mg PO Q6HR 5 Days #20 cap 11/21/20 Allergies Allergy/AdvReac Type Severity Reaction Status Date / Time No Known Allergies Allergy Verified 09/24/21 18:11 Review of Systems ROS Statement: Those systems with pertinent positive or pertinent negative responses have been documented in the HPI. ROS Other: All systems not noted in ROS Statement are negative. Past Medical History Past Medical History: No Reported History Additional Past Medical History / Comment(s): ETOH abuse History of Any Multi-Drug Resistant Organisms: None Reported Past Surgical History: No Surgical Hx Reported Past Anesthesia/Blood Transfusion Reactions: No Reported Reaction Past Psychological History: No Psychological Hx Reported Smoking Status: Current every day smoker Past Alcohol Use History: Abuse, Daily Past Drug Use History: None Reported - Past Family History Father Family Medical History: Hypertension Mother Family Medical History: Hypertension General Exam Limitations: no limitations Course Vital Signs 09/24/21 09/24/21 18:08 18:10 Temperature 98.3 F Pulse Rate 109 H Respiratory 20 Rate Blood Pressure 145/95 O2 Sat by Pulse 100 Oximetry Medical Decision Making - Lab Data Result diagrams: 09/24/21 19:07 09/24/21 19:07 Lab Results 09/24/21 09/24/21 09/24/21 Range/Units 17:25 19:07 19:07 WBC 4.5 (3.8-10.6) k/uL RBC 3.86 L (4.30-5.90) m/uL Hgb 13.9 (13.0-17.5) gm/dL Hct 41.9 (39.0-53.0) % MCV 108.4 H (80.0-100.0) fL MCH 36.0 H (25.0-35.0) pg MCHC 33.3 (31.0-37.0) g/dL RDW 16.3 H (11.5-15.5) % Plt Count 165 (150-450) k/uL MPV 8.6 Neutrophils % 64 % Lymphocytes % 26 % Monocytes % 5 % Eosinophils % 1 % Basophils % 1 % Neutrophils # 2.8 (1.3-7.7) k/uL Lymphocytes # 1.2 (1.0-4.8) k/uL Monocytes # 0.2 (0-1.0) k/uL Eosinophils # 0.0 (0-0.7) k/uL Basophils # 0.0 (0-0.2) k/uL Anisocytosis Slight Macrocytosis Marked A Sodium 133 L (137-145) mmol/L Potassium 3.6 (3.5-5.1) mmol/L Chloride 91 L (98-107) mmol/L Carbon Dioxide 22 (22-30) mmol/L Anion Gap 20 mmol/L BUN 7 L (9-20) mg/dL Creatinine 0.64 L (0.66-1.25) mg/dL Est GFR (CKD-EPI)AfAm >90 (>60 ml/min/1.73 sqM) Est GFR (CKD-EPI)NonAf >90 (>60 ml/min/1.73 sqM) Glucose 80 (74-99) mg/dL Calcium 8.4 (8.4-10.2) mg/dL Magnesium 1.4 L (1.6-2.3) mg/dL Total Bilirubin 0.7 (0.2-1.3) mg/dL AST 81 H (17-59) U/L ALT 24 (4-49) U/L Alkaline Phosphatase 160 H (38-126) U/L Total Protein 8.0 (6.3-8.2) g/dL Albumin 4.7 (3.5-5.0) g/dL Amylase 42 (30-110) U/L Lipase 85 (23-300) U/L Serum Alcohol 273 H* mg/dL Disposition Clinical Impression: Alcohol intoxication Disposition: ADMITTED IP TO THIS HOSP Condition: Fair Referrals: None,Stated [Primary Care Provider] - 1-2 days Decision Time: 20:21
[2021-09-24 20:01] LABS: Alcohol 273 mg/dL
[2021-09-24 20:03] LABS: MCV 108.4 fL (80.0-100.0)
[2021-09-24] MEDS ORDERED: NALOXONE 0.4 MG/ML 1 ML VIAL IV PRN (20:19)
[2021-09-24] MEDS ORDERED: ONDANSETRON 4 MG/2 ML VIAL IVP STA (21:58)
[2021-09-24] MEDS ORDERED: MORPHINE SULFATE 4 MG/ML SYRINGE IV STA (21:58)
[2021-09-25] MEDS ORDERED: LORazepam 2 MG/ML INJ IV PRN ×3 (03:37)
[2021-09-25] MEDS: SODIUM CHLORIDE 0.9% 1,000 ML IV SCH ×2 (07:50→20:54)
[2021-09-25] MEDS: HEPARIN SODIUM,PORCINE/PF 5,000 UNIT/0.5 ML SYRINGE SQ SCH ×2 (08:03→20:52)
[2021-09-25] MEDS: FAMOTIDINE 20 MG/2 ML VIAL IV SCH ×2 (08:03→20:52)
--- NOTE | 2021-09-25 14:41 | P.HPIM ---
History of Present Illness H&P Date: 09/25/21 Chief Complaint: EtOH withdrawal 41-year-old male, history of hyperlipidemia, he's been a daily alcohol user for the last 8 years. Patient states he drinks half a fifth of vodka and/or up to 12 beers on a daily basis. Since yesterday's been having symptoms of nausea palpitations. Patient is accompanied by father. Patient does also felt tremulous. Last alcohol intake was yesterday. Patient is not tried to quit alcohol. Patient states that he has never been admitted to the hospital for occult withdrawal in the past. Workup in ED revealed a sodium of 133, potassium 3.6, BUN/creatinine of 7/0.64 and blood glucose of 80 WBC 4.5, hemoglobin 13.9 and platelet count of 165; magnesium of 1.4; AST is elevated at 81 with serum alcohol level of 273 Patient is admitted to the hospital for alcohol intoxication/withdrawal and electrolyte imbalance Review of Systems REVIEW OF SYSTEMS: CONSTITUTIONAL: No fever, no malaise, no fatigue. HEENT: No recent visual problems or hearing problems. Denied any sore throat. CARDIOVASCULAR: No chest pain, orthopnea, PND, no palpitations, no syncope. PULMONARY: No shortness of breath, no cough, no hemoptysis. GASTROINTESTINAL: No diarrhea, no nausea, no vomiting, no abdominal pain. NEUROLOGICAL: No headaches, no weakness, no numbness. HEMATOLOGICAL: Denies any bleeding or petechiae. GENITOURINARY: Denies any burning micturition, frequency, or urgency. MUSCULOSKELETAL/RHEUMATOLOGICAL: Denies any joint pain, swelling, or any muscle pain. ENDOCRINE: Denies any polyuria or polydipsia. The rest of the 14-point review of systems is negative. Past Medical History Past Medical History: Hyperlipidemia Additional Past Medical History / Comment(s): ETOH abuse/withdrawals, angioedema thought 2ndary to lisinopril. History of Any Multi-Drug Resistant Organisms: None Reported Past Surgical History: No Surgical Hx Reported Past Anesthesia/Blood Transfusion Reactions: Unable to Obtain Additional Past Anesthesia/Blood Transfusion Reaction / Comment(s): Pt has never had anesthesia Smoking Status: Current every day smoker - Past Family History Father Family Medical History: Hypertension Mother Family Medical History: Hypertension Medications and Allergies Home Medications Medication Instructions Recorded Confirmed Type No Known Home Medications 09/24/21 09/24/21 History Allergies Allergy/AdvReac Type Severity Reaction Status Date / Time lisinopril Allergy Swelling Verified 09/25/21 08:32 Physical Exam Vitals: Vital Signs Temp Pulse Pulse Resp BP BP Pulse Ox 09/25/21 13:10 98.9 F 85 13 139/86 99 09/25/21 07:48 98.5 F 93 12 198/91 98 09/25/21 03:20 84 134/74 09/24/21 23:00 88 122/84 09/24/21 21:10 102 H 18 122/74 97 09/24/21 20:10 102 H 18 122/74 97 09/24/21 18:10 98.3 F 09/24/21 18:08 109 H 20 145/95 100 Intake and Output 09/24/21 09/25/21 09/25/21 22:59 06:59 14:59 Other: Weight 77.111 kg 77.111 kg - Constitutional General appearance: Present: average body habitus, cooperative, no acute distress - EENT Eyes: Present: anicteric sclerae, EOMI, PERRLA, normal appearance ENT: Present: hearing grossly normal, normal oropharynx Ears: bilateral: normal - Neck Neck: Present: normal ROM. Absent: lymphadenopathy, rigidity, thyromegaly Carotids: negative: bruit present Thyroid: bilateral: normal size, negative: enlarged, nodule - Respiratory Respiratory: bilateral: CTA, negative: rales, rhonchi, wheezing - Cardiovascular Rhythm: regular Heart sounds: normal: S1, S2 Abnormal Heart Sounds: Absent: systolic murmur, diastolic murmur - Gastrointestinal General gastrointestinal: Present: normal bowel sounds, soft. Absent: distended, organomegaly, tenderness - Genitourinary Genitourinary Comment(s): deferred - Integumentary Integumentary: Present: normal turgor. Absent: jaundiced, rash, ulcer - Neurologic Neurologic: Present: CNII-XII intact. Absent: focal deficits - Musculoskeletal Musculoskeletal: Present: gait normal, strength equal bilaterally - Psychiatric Psychiatric: Present: A&O x's 3, appropriate affect, intact judgment & insight Results CBC & Chem 7: 09/24/21 19:07 09/24/21 19:07 Labs: Abnormal Lab Results - Last 24 Hours (Table) 09/24/21 09/24/21 09/24/21 Range/Units 17:25 19:07 19:07 RBC 3.86 L (4.30-5.90) m/uL MCV 108.4 H (80.0-100.0) fL MCH 36.0 H (25.0-35.0) pg RDW 16.3 H (11.5-15.5) % Macrocytosis Marked A Sodium 133 L (137-145) mmol/L Chloride 91 L (98-107) mmol/L BUN 7 L (9-20) mg/dL Creatinine 0.64 L (0.66-1.25) mg/dL Magnesium 1.4 L (1.6-2.3) mg/dL AST 81 H (17-59) U/L Alkaline Phosphatase 160 H (38-126) U/L Serum Alcohol 273 H* mg/dL Thrombosis Risk Factor Assmnt - Choose All That Apply Any of the Below Risk Factors Present?: No Other Risk Factors: No Other congenital or acquired thrombophilia - If yes, enter type in comment: No Thrombosis Risk Factor Assessment Level: Very Low Risk Assessment and Plan Assessment: 1. Acute intoxication/withdrawal - Patient has been placed on IV fluids with vitamin supplement; CIWA protocol; monitor renal function and electrolytes; we will plan to add scheduled Librium if patient scores high on CIWA scale Consult case management for discharge resources 2. Hypomagnesemia/electronic imbalance; replaced in ED; we will monitor closely and supplement as needed 3. Transaminitis; AST is elevated likely related to chronic alcohol abuse; we will monitor liver enzymes closely and make further recommendations as needed 4. Chronic EtOH abuse; counseling done a need for abstinence from alcohol 5. Hyperlipidemia; currently not on any statin therapy; we will order lipid profile and make recommendations accordingly DVT prophylaxis; SCDs CODE STATUS full code
[2021-09-26 05:57] VITALS: BP 136/82; PULSE 73; RESP 16; TEMP 98.8
[2021-09-26] MEDS: HEPARIN SODIUM,PORCINE/PF 5,000 UNIT/0.5 ML SYRINGE SQ SCH (08:24)
[2021-09-26] MEDS ORDERED: FAMOTIDINE 20 MG TAB PO SCH (09:00)
--- NOTE | 2021-10-25 21:30 | P.DS ---
Providers Date of admission: 09/24/21 20:19 Expected date of discharge: 09/26/21 Attending physician: Raoul Pearce MD Primary care physician: Stated None Hospital Course: 41-year-old male, history of hyperlipidemia, he's been a daily alcohol user for the last 8 years. Patient states he drinks half a fifth of vodka and/or up to 12 beers on a daily basis. Since yesterday's been having symptoms of nausea palpitations. Patient is accompanied by father. Patient does also felt tremulous. Last alcohol intake was yesterday. Patient is not tried to quit alcohol. Patient states that he has never been admitted to the hospital for occ ult withdrawal in the past. Workup in ED revealed a sodium of 133, potassium 3.6, BUN/creatinine of 7/0.64 and blood glucose of 80 WBC 4.5, hemoglobin 13.9 and platelet count of 165; magnesium of 1.4; AST is elevated at 81 with serum alcohol level of 273 Patient is admitted to the hospital for alcohol intoxication/withdrawal and electrolyte imbalance 1. Acute intoxication/withdrawal - Patient has been placed on IV fluids with vitamin supplement; CIWA protocol; monitor renal function and electrolytes; we will plan to add scheduled Librium if patient scores high on CIWA scale Consult case management for discharge resources 2. Hypomagnesemia/electronic imbalance; replaced in ED; we will monitor closely and supplement as needed 3. Transaminitis; AST is elevated likely related to chronic alcohol abuse; we will monitor liver enzymes closely and make further recommendations as needed 4. Chronic EtOH abuse; counseling done a need for abstinence from alcohol 5. Hyperlipidemia; currently not on any statin therapy; we will order lipid profile and make recommendations accordingly Patient Condition at Discharge: Fair Plan - Discharge Summary Discharge Rx Participant: No New Discharge Prescriptions: New Thiamine [Vitamin B-1] 100 mg PO DAILY 30 Days #30 tablet Discharge Medication List Thiamine [Vitamin B-1] 100 mg PO DAILY 30 Days #30 tablet 09/26/21 [Rx] Follow up Appointment(s)/Referral(s): None,Stated [Primary Care Provider] - 1-2 days Patient Instructions/Handouts: Alcohol Intoxication (DC), Abuse of Alcohol (DC), Alcohol Withdrawal (DC) Activity/Diet/Wound Care/Special Instructions: Keep appointment at [facility] for September 29, as previously scheduled Discharge Disposition: HOME SELF-CARE
== END 2021-09-26 12:54 | disposition home or self-care (01) | DRG 897 ==
LOC: EC 17:07 → 4SSUR 20:19 → 5NMEDONC 09-25 02:24
PROVIDERS: ADMIT Internal Medicine; ATTEND Internal Medicine
PROC: 05HC33Z Insertion of Infusion Device into Left Basilic Vein, Percutaneous Approach (ICD-10-PCS; principal; 2021-09-25 09:25)
DX: F10.239 Alcohol dependence with withdrawal, unspecified (principal); F10.229 Alcohol dependence with intoxication, unspecified; Y90.8 Blood alcohol level of 240 mg/100 ml or more; Z71.41 Alcohol abuse counseling and surveillance of alcoholic; E78.5 Hyperlipidemia, unspecified; E83.42 Hypomagnesemia; E87.8 Other disorders of electrolyte and fluid balance, not elsewhere classified; F17.210 Nicotine dependence, cigarettes, uncomplicated; Z82.49 Family history of ischemic heart disease and other diseases of the circulatory system; Z28.21 Immunization not carried out because of patient refusal
CPT/HCPCS: 36410; 36415; 76937; 80053; 80306; 80320; 82150; 83690; 83735; 85025; 96374; 96375; 96376; 99284; 99285

== ENCOUNTER → 2021-11-17 | Outpatient (CLI) | payer OTHER ==
--- NOTE | 2021-11-17 09:32 | US ---
EXAMINATION TYPE: US liver DATE OF EXAM: 11/17/2021 COMPARISON: NONE CLINICAL HISTORY: K85.90 POSSIBLE PANCREATITIS. TECHNIQUE: Multiple sonographic images of the right upper quadrant are obtained. FINDINGS: EXAM MEASUREMENTS: Liver Length: 15.5 cm Gallbladder Wall: 0.2 cm CBD: 0.4 cm Right Kidney: 10.9 x 4.8 x 5.9 cm SWIMMING COACH OR INSTRUCTOR NOTES: Pancreas: Tail obscured by overlying bowel gas Liver: hyperechoic oval structure with peripheral vascularity measuring 0.9 x 0.9 x 0.9cm Gallbladder: wnl Evidence for sonographic Mullins's sign: no CBD: wnl Right Kidney: wnl IMPRESSION: Probable hepatic hemangioma which can be confirmed with CT.
== END | disposition home or self-care (01) ==
LOC: RADUSWWP 08:16
PROVIDERS: ATTEND Family Medicine
DX: K85.90 Acute pancreatitis without necrosis or infection, unspecified (principal)
CPT/HCPCS: 76705

== ENCOUNTER 2022-10-11 10:16 | Inpatient (IN) | payer OTHER ==
[2022-10-11] MEDS ORDERED: ONDANSETRON 4 MG/2 ML VIAL IVP STA (11:09)
[2022-10-11] MEDS ORDERED: SODIUM CHLORIDE 0.9% 1,000 ML IV STA ×2 (11:09→12:20)
[2022-10-11] MEDS ORDERED: PANTOPRAZOLE 40 MG/10 ML VIAL IVP STA (11:09)
[2022-10-11] MEDS ORDERED: SODIUM CHLORIDE 0.9% 2,000 ML IV STA (11:09)
[2022-10-11] MEDS ORDERED: THIAMINE 100 MG/ML 2 ML VIAL IM STA (11:10)
[2022-10-11] MEDS ORDERED: LORazepam 2 MG/ML INJ IV STA (11:10)
[2022-10-11 11:49] LABS: HCT 32.5 % (39.0-53.0); HGB 11.7 gm/dL (13.0-17.5); MCH 35.1 pg (25.0-35.0); MCHC 36.1 g/dL (31.0-37.0); Mean Platelet Volume 8.7; RBC 3.35 m/uL (4.30-5.90); RDW 14.4 % (11.5-15.5); WBC 6.4 k/uL (3.8-10.6)
[2022-10-11 11:56] LABS: Partial Thromboplastin Time 26.2 sec (22.0-30.0); Prothrombin Time 10.4 sec (9.0-12.0)
[2022-10-11 11:58] LABS: ALT 43 U/L (4-49); AST 208 U/L (17-59); African American GFR (CKD) >90 (>60 ml/min/1.73 sqM); Albumin 4.6 g/dL (3.5-5.0); Alkaline Phosphatase 139 U/L (38-126); Amylase 39 U/L (30-110); Anion Gap 26 mmol/L; Blood Urea Nitrogen 4 mg/dL (9-20); Calcium 8.2 mg/dL (8.4-10.2); Carbon Dioxide 19 mmol/L (22-30); Glucose 127 mg/dL (74-99); Lipase 91 U/L (23-300); Non-African American GFR(CKD) >90 (>60 ml/min/1.73 sqM); Potassium 3.1 mmol/L (3.5-5.1); Total Bilirubin 1.4 mg/dL (0.2-1.3); Total Protein 7.9 g/dL (6.3-8.2)
[2022-10-11 12:04] LABS: Chloride 73 mmol/L (98-107); Sodium 118 mmol/L (137-145)
[2022-10-11 12:05] LABS: Alcohol 84 mg/dL
--- NOTE | 2022-10-11 12:24 | CT ---
EXAMINATION TYPE: CT brain filemon wo con DATE OF EXAM: 10/11/2022 COMPARISON: 09/05/2012 HISTORY: 42-year-old male pain after FALL/SEIZURE CT DLP: 759 mGycm Automated exposure control for dose reduction was used. Technique: Examination of the head was done in axial plane without intravenous contrast. Coronal and sagittal reconstructions performed. CT of the cervical spine was obtained in axial plane without intravenous injection of contrast mater ial. Coronal and sagittal reformatted images were obtained from the axial views for evaluation of f ractures, spinal alignment and canal. FINDINGS: Head: There is no evidence of acute intracranial hemorrhage, acute ischemic changes, mass, mass-effect, or extra-axial fluid collection. There is no effacement of cerebral sulci or basal subarachnoid cister ns. There is no hydrocephalus. There is no midline shift. Marin-white matter distinction is preserv ed. Anterior right frontal scalp contusion. No underlying calvarial fracture. Mastoid air cells well pneu matized. Facial bones reported separately. Cervical spine: No craniocervical junction and probably, predental space widening, or prevertebral soft tissue swelli ng. No acute fracture of the cervical spine. Alignment is maintained. No evidence spinal canal stenosis by CT. No significant neuroforaminal narrowing is seen. Sagittal and coronal reformatted images confirm above findings. COMBINED IMPRESSION: 1. Anterior right frontal scalp contusion. No underlying calvarial fracture. No acute intracranial ab normality seen. 2. No acute fracture or malalignment of the cervical spine. 3. Facial bones reported separately.
[2022-10-11 12:27] LABS: MCV 97.2 fL (80.0-100.0)
--- NOTE | 2022-10-11 12:29 | XR ---
EXAMINATION TYPE: XR chest 2V DATE OF EXAM: 10/11/2022 COMPARISON: 09/12/2022 TECHNIQUE: PA and lateral views submitted. HISTORY: Pain FINDINGS: The lungs are clear and there is no pneumothorax, pleural effusion, or focal pneumonia. Heart size normal and no overt failure. Osseous structures demonstrate hypertrophic and degenerative changes of the spine. Hyperinflation suggests COPD. Or chronic rib deformities suggest remote trauma. IMPRESSION: 1. No acute process. Correlate for COPD.
--- NOTE | 2022-10-11 12:29 | CT ---
EXAMINATION TYPE: CT facial bones wo con DATE OF EXAM: 10/11/2022 COMPARISON: 09/05/2022 HISTORY: 42-year-old male with pain after FALL TECHNIQUE: Contiguous axial scanning of the facial bones without IV contrast. Coronal and sagittal re constructions performed. CT DLP: 300 mGycm Automated exposure control for dose reduction was used. FINDINGS: The mandible and TMJs are intact. The pterygoid plates and zygomatic arches appear intact. There is a lucency seen along the coronal plane involving the bilateral nasal bones superiorly, sagit max image 57 and axial image 63 and 4. Suspect additional old minimally angulated nasal bone fracture s with slight leftward deviation of the nose. Trace mucosal thickening anterior ethmoid air cells. Orbits and globes are intact. Right supraorbital soft tissue swelling. IMPRESSION: 1. TRANSVERSE LUCENCY ORIENTED ALONG THE CORONAL PLANE INVOLVING THE SUPERIOR ASPECT OF THE BILATERAL NASAL BONES. ADDITIONAL MINIMAL ANGULATION DEFORMITIES OF THE BILATERAL NASAL BONES. IF THERE IS ASS OCIATED PAIN AND INJURY HERE, NONDISPLACED SUBTLE NASAL BONE FRACTURES SHOULD BE CONSIDERED. 2. RIGHT SUPRAORBITAL SOFT TISSUE SWELLING. NO ADDITIONAL UNDERLYING ACUTE FACIAL BONE FRACTURE SEEN.
[2022-10-11] MEDS: LORazepam 2 MG/ML INJ IV PRN ×3 (13:23→22:01)
[2022-10-11] MEDS ORDERED: NALOXONE 0.4 MG/ML 1 ML VIAL IV PRN (13:43)
[2022-10-11] MEDS ORDERED: ACETAMINOPHEN TAB 325 MG TAB PO PRN (13:43)
[2022-10-11] MEDS ORDERED: ONDANSETRON 4 MG/2 ML VIAL IVP PRN (13:43)
--- NOTE | 2022-10-11 14:03 | ED ---
General Adult HPI - General Chief complaint: Neuro Symptoms/Deficit Stated complaint: muscle cramps-vision loss Time Seen by Provider: 10/11/22 10:50 Source: patient, RN notes reviewed, old records reviewed Mode of arrival: wheelchair Limitations: no limitations - History of Present Illness Initial comments: Patient is a 42-year-old male who presents emergency Department with what appears to be alcohol withdrawals and dehydration. States been having nausea and vomiting. Patient has drank nothing since yesterday. Patient has a history of chronic alcohol abuse. Denies any history of delirium tremons. Denies any chest pain or shortness breath. Endorses multiple episodes of nonbilious nonbloody emesis as well as some diarrhea. Denies any sick contacts or fevers. No acute complaints at this time. Presents over concern for some muscle spasmi ng in his upper extremities as he does have a history of chronic hypokalemia. States his dog tripped him yesterday and he fell onto his face. Has been having lower lip swelling as well as a bruise located over the right eye with hematoma. Unknown loss of consciousness. Is not on blood thinners. He is up-to-date on tetanus vaccine per patient. - Related Data Home Medications Medication Instructions Recorded Confirmed ALPRAZolam [Xanax] 0.5 mg PO BID PRN 09/13/22 10/11/22 Gabapentin [Neurontin] 300 mg PO BID 09/13/22 10/11/22 Potassium Chloride ER [K-Dur 20] 40 meq PO BID 09/13/22 10/11/22 Allergies Allergy/AdvReac Type Severity Reaction Status Date / Time lisinopril AdvReac angioedema Verified 10/11/22 13:13 Review of Systems ROS Statement: Those systems with pertinent positive or pertinent negative responses have been documented in the HPI. Review of Systems: CONST: Denies fever EYES: Denies blurry vision ENT: Denies nasal congestion C/V: Denies Chest pain RESP: Denies shortness of breath GI: Endorses nausea and vomiting : Denies dysuria SKIN: Endorses bruising above right eyebrow and lip swelling from fall. MSK: Denies joint pain. NEURO: Denies headache ROS Other: All systems not noted in ROS Statement are negative. Past Medical History Past Medical History: Hyperlipidemia Additional Past Medical History / Comment(s): ETOH abuse/withdrawals, angioedema thought 2ndary to lisinopril. History of Any Multi-Drug Resistant Organisms: None Reported Past Surgical History: No Surgical Hx Reported Past Anesthesia/Blood Transfusion Reactions: Unable to Obtain Additional Past Anesthesia/Blood Transfusion Reaction / Comment(s): Pt has never had anesthesia Past Psychological History: No Psychological Hx Reported Smoking Status: Current every day smoker Past Alcohol Use History: None Reported Past Drug Use History: None Reported - Past Family History Father Family Medical History: Hypertension Mother Family Medical History: Hypertension General Exam - General Exam Comments Initial Comments: General: Appears in mild to moderate distress. HEAD: Hematoma and bruising located above right eyebrow. No obvious facial tenderness to palpation or other injuries other than lower lip swelling with a superficial abrasion that is having control bleeding. Negative bowel sign. Negative raccoon eyes. EYES: PERRLA, EOMI, conjunctiva normal, no discharge. Pupils 3 mm and equal bilaterally. ENT: Hearing grossly intact, normal oropharynx. RESPIRATORY: Clear breath sounds bilaterally. No wheezes, rales, or rhonchi. C/V: Tachycardic with regular rhythm.. S1 and S2 auscultated, peripheral pulses 2+ and intact throughout ABD: Abd is soft, nontender, nondistended EXT: Normal range of motion, no obvious deformity SKIN: No rashes or lesions observed on exposed skin. NEURO: Alert and oriented 4. GCS is 15. NIH of 0. Tongue fasciculations. Peripheral tremors. There is been alcohol withdrawals. Limitations: no limitations Course Vital Signs 10/11/22 10:41 Temperature 97.8 F Pulse Rate 128 H Respiratory 30 H Rate Blood Pressure 131/77 O2 Sat by Pulse 98 Oximetry Medical Decision Making - Medical Decision Making Was pt. sent in by a medical professional or institution (, PA, CUSTOM HOME INSTALLER, urgent care, hospital, or half-way...) When possible be specific @ -No Did you speak to anyone other than the patient for history (EMS, parent, family, police, friend...)? What history was obtained from this source @ -No Did you review nursing and triage notes (agree or disagree)? Why? @ -I reviewed and agree with nursing and triage notes Were old charts reviewed (outside hosp., previous admission, EMS record, old EKG, old radiological studies, urgent care reports/EKG's, half-way records)? Report findings @ -No old charts were reviewed Differential Diagnosis (chest pain, altered mental status, abdominal pain women, abdominal pain men, vaginal bleeding, weakness, fever, dyspnea, syncope, headache, dizziness, GI bleed, back pain, seizure, CVA, palpatations, mental health, musculoskeletal)? @ -Alcohol intoxication, alcohol withdrawal, dehydration, nausea and vomiting. This list is not all inclusive. EKG interpreted by me (3pts min.). @ -As above X-rays interpreted by me (1pt min.). @ -Chest x-ray shows no obvious acute cardio pulmonary process. CT interpreted by me (1pt min.). @ -CT head and C-spine and facial bones negative for any obvious acute fractures. Patient has what appears to be chronic nasal bone fractures as he has no tenderness at the site. He also has a right frontal scalp contusion. No acute intracranial abnormality. CT C-spine unremarkable for any obvious injury. U/S interpreted by me (1pt. min.). @ -None done What testing was considered but not performed or refused? (CT, X-rays, U/S, labs)? Why? @ -None What meds were considered but not given or refused? Why? @ -None Did you discuss the management of the patient with other professionals (prof vásquez i.e. , PA, CUSTOM HOME INSTALLER, lab, RT, psych nurse, social and human services assistant, biztalk consultant, teacher, special forces warrant officer, field nurse case manager)? Give summary @ -Discussed with Dr. Bae who accepted the admission. Was smoking cessation discussed for >3mins.? @ -No Was critical care preformed (if so, how long)? @ -yes, 36 minutes. Were there social determinants of health that impacted care today? How? (Homelessness, low income, unemployed, alcoholism, drug addiction, transportation, low edu. Level, literacy, decrease access to med. care, long-term, rehab)? @ -No Was there de-escalation of care discussed even if they declined (Discuss DNR or withdrawal of care, Hospice)? DNR status @ -No What co-morbidities impacted this encounter? (DM, HTN, Smoking, COPD, CAD, Cancer, CVA, ARF, Chemo, Hep., AIDS, mental health diagnosis, sleep apnea, morbid obesity)? @ -None Was patient admitted / discharged? Hospital course, mention meds given and route, prescriptions, significant lab abnormalities, going to OR and other pertinent info. @ -Based on the patient's presentation and physical exam, presents with alcohol withdrawals and nausea and vomiting. See Y is approximately 12-14 and he will be given Ativan as well as multiple IV fluid boluses and antiemetics. He was in agreement with this plan. He will likely require admission to the hospital. We will obtain CT imaging to for any traumatic injury. Vital signs other than tachycardia appear within acceptable limits. Patient's labs are remarkable for a hyponatremia and hypokalemia likely secondary to dehydration from persistent nausea and vomiting. Mild hypokalemia which will be replenished. He has an anion gap metabolic acidosis likely secondary to alcohol intoxication as well as lactic acidosis from dehydration. I do not suspect this is infectious at this time. We will repeat the lactic acid and evaluate for improvement. We'll also obtain repeat labs. Nonspecifically elevated LFTs. Remainder the labs within acceptable limits. Imaging negative for any obvious acute injury other than contusion over the right forehead. Chronic nasal bone fracture. On reevaluation, he is feeling improved on the Ativan. However due to his suspected alcohol withdrawals with bilirubin the hospital and he was in agree ment with the plan. I spoke with the admitting physician, Dr. Bae who accepted the patient. He was admitted in serious condition. Undiagnosed new problem with uncertain prognosis? @ -No Drug Therapy requiring intensive monitoring for toxicity (Heparin, Nitro, Insulin, Cardizem)? @ -No Were any procedures done? @ -No Diagnosis/symptom? @ -Dehydration, nausea and vomiting, alcohol withdrawals, lactic acidosis. Acute, or Chronic, or Acute on Chronic? @ -Acute Uncomplicated (without systemic symptoms) or Complicated (systemic symptoms)? @ -Complicated Side effects of treatment? @ -No Exacerbation, Progression, or Severe Exacerbation? @ -No Poses a threat to life or bodily function? How? (Chest pain, USA, NM, pneumonia, PE, COPD, DKA, ARF, appy, cholecystitis, CVA, Diverticulitis, Homicidal, Suicidal, threat to staff... and all critical care pts) @ -Yes - Lab Data Result diagrams: 10/11/22 11:09 10/11/22 11:09 Lab Results 10/11/22 10/11/2210/11/23 Range/Units 11:09 11:09 11:09 WBC 6.4 (3.8-10.6) k/uL RBC 3.35 L (4.30-5.90) m/uL Hgb 11.7 L (13.0-17.5) gm/dL Hct 32.5 L (39.0-53.0) % MCV 97.2 D (80.0-100.0) fL MCH 35.1 H (25.0-35.0) pg MCHC 36.1 (31.0-37.0) g/dL RDW 14.4 (11.5-15.5) % Plt Count 89 L (150-450) k/uL MPV 8.7 Neutrophils % (Manual) 60 % Band Neuts % (Manual) 24 % Lymphocytes % (Manual) 10 % Monocytes % (Manual) 5 % Eosinophils % (Manual) 1 % Neutrophils # (Manual) 5.30 (1.3-7.7) k/uL Lymphocytes # (Manual) 0.64 L (1.0-4.8) k/uL Monocytes # (Manual) 0.32 (0-1.0) k/uL Eosinophils # (Manual) 0.06 (0-0.7) k/uL Nucleated RBCs 0 (0-0) /100 WBC Manual Slide Review Performed RBC Morphology Normal PT 10.4 (9.0-12.0) sec INR 1.0 (<1.2) APTT 26.2 (22.0-30.0) sec Sodium 118 L* (137-145) mmol/L Potassium 3.1 L (3.5-5.1) mmol/L Chloride 73 L* (98-107) mmol/L Carbon Dioxide 19 L (22-30) mmol/L Anion Gap 26 mmol/L BUN 4 L (9-20) mg/dL Creatinine 0.66 (0.66-1.25) mg/dL Est GFR (CKD-EPI)AfAm >90 (>60 ml/min/1.73 sqM) Est GFR (CKD-EPI)NonAf >90 (>60 ml/min/1.73 sqM) Glucose 127 H (74-99) mg/dL Lactic Ac Sepsis Rflx Plasma Lactic Acid Brandon (0.7-2.0) mmol/L Calcium 8.2 L (8.4-10.2) mg/dL Total Bilirubin 1.4 H (0.2-1.3) mg/dL AST 208 H (17-59) U/L ALT 43 (4-49) U/L Alkaline Phosphatase 139 H (38-126) U/L Total Protein 7.9 (6.3-8.2) g/dL Albumin 4.6 (3.5-5.0) g/dL Amylase 39 (30-110) U/L Lipase 91 (23-300) U/L Serum Alcohol 84 mg/dL 10/11/22 10/11/22 Range/Units 11:09 12:03 WBC (3.8-10.6) k/uL RBC (4.30-5.90) m/uL Hgb (13.0-17.5) gm/dL Hct (39.0-53.0) % MCV (80.0-100.0) fL MCH (25.0-35.0) pg MCHC (31.0-37.0) g/dL RDW (11.5-15.5) % Plt Count (150-450) k/uL MPV Neutrophils % (Manual) % Band Neuts % (Manual) % Lymphocytes % (Manual) % Monocytes % (Manual) % Eosinophils % (Manual) % Neutrophils # (Manual) (1.3-7.7) k/uL Lymphocytes # (Manual) (1.0-4.8) k/uL Monocytes # (Manual) (0-1.0) k/uL Eosinophils # (Manual) (0-0.7) k/uL Nucleated RBCs (0-0) /100 WBC Manual Slide Review RBC Morphology PT (9.0-12.0) sec INR (<1.2) APTT (22.0-30.0) sec Sodium (137-145) mmol/L Potassium (3.5-5.1) mmol/L Chloride (98-107) mmol/L Carbon Dioxide (22-30) mmol/L Anion Gap mmol/L BUN (9-20) mg/dL Creatinine (0.66-1.25) mg/dL Est GFR (CKD-EPI)AfAm (>60 ml/min/1.73 sqM) Est GFR (CKD-EPI)NonAf (>60 ml/min/1.73 sqM) Glucose (74-99) mg/dL Lactic Ac Sepsis Rflx Y Plasma Lactic Acid Brandon 4.5 H* (0.7-2.0) mmol/L Calcium (8.4-10.2) mg/dL Total Bilirubin (0.2-1.3) mg/dL AST (17-59) U/L ALT (4-49) U/L Alkaline Phosphatase (38-126) U/L Total Protein (6.3-8.2) g/dL Albumin (3.5-5.0) g/dL Amylase (30-110) U/L Lipase (23-300) U/L Serum Alcohol mg/dL - EKG Data -: EKG Interpreted by Me EKG Comments: 12-lead Electrocardiogram Interpretation Note EKG was reviewed and interpreted by myself. 12-lead ECG performed at 1625 is interpreted by me as revealing normal sinus rhythm at a rate of 94 beats per minute. [place] is normal. DC interval is 120 ms, QRS duration is 90 ms, QTc is 429 ms.. There were no ST or T wave abnormalities to suggest myocardial ischemi a or injury. R wave progression across the precordium was satisfactory. By my interpretation this EKG is non-diagnostic for acute ischemia. Critical Care Time Critical Care Time: Yes Total Critical Care Time: 36 Disposition Clinical Impression: Alcohol withdrawal, Dehydration, Nausea and vomiting, Lactic acidosis Disposition: ADMITTED IP TO THIS HOSP Condition: Serious Time of Disposition: 13:25
[2022-10-11] MEDS ORDERED: POTASSIUM CHLORIDE ER 20 MEQ TAB.ER PO STA (14:08)
[2022-10-11 14:35] LABS: Band Neutrophils % 24 %; Eosinophils # (M) 0.06 k/uL (0-0.7); Lymphocytes # (M) 0.64 k/uL (1.0-4.8); Monocytes # (M) 0.32 k/uL (0-1.0); Neutrophils % (M) 60 %; Nucleated Red Blood Cells 0 /100 WBC (0-0); Total Cells Counted 100
[2022-10-11 14:36] LABS: Appearance,Urine Clear (Clear); Bilirubin,Urine Negative (Negative); Blood,Urine Moderate (Negative); Glucose,Urine (UA) Negative (Negative); Hyaline Casts,Urine 17 /lpf (0-2); Ketones,Urine 2+ (Negative); Leukocyte Esterase,Urine Negative (Negative); Mucus,Urine Rare /hpf; Nitrite,Urine Negative (Negative); Protein,Urine 2+ (Negative); RBC,Urine <1 /hpf (0-5); Specific Gravity,Urine 1.012 (1.001-1.035); Squamous Epithelial Cell,Urine <1 /hpf (0-4); Urobilinogen,Urine <2.0 mg/dL (<2.0); WBC,Urine <1 /hpf (0-5)
[2022-10-11 14:44] LABS: Color,Urine Yellow
[2022-10-11 14:57] LABS: RBC Morphology Normal
[2022-10-11 14:59] LABS: Platelet Count 89 k/uL (150-450)
[2022-10-11] MEDS ORDERED: ZOLPIDEM 5 MG TAB PO PRN (21:56)
[2022-10-11] MEDS: DEXTROSE 5%-0.45% NACL 1,000 ML IV SCH (22:12)
[2022-10-12] MEDS: LORazepam 2 MG/ML INJ IV PRN ×9 (00:14→22:49)
[2022-10-12] MEDS: HALOPERIDOL LACTATE 5 MG/ML 1 ML VIAL IM PRN ×2 (04:15→19:56)
--- NOTE | 2022-10-12 06:24 | HP ---
HISTORY AND PHYSICAL CHIEF COMPLAINT: DTs. HISTORY OF PRESENT ILLNESS: This is another admission for this 42-year-old male who was just in the hospital recently. He came back intoxicated and dehydrated, had a sodium low at 118. REVIEW OF SYSTEMS: He was intoxicated. Past medical history, family history, personal and social histories are unremarkable and unchanged. PHYSICAL EXAMINATION: VITAL SIGNS: Blood pressure is 126/92 with a pulse of 90, respirations 34. He is afebrile. GENERAL: He appeared to be intoxicated. HEAD, EARS, EYES, NOSE, MOUTH: Normal. CHEST: Clear. CARDIAC: Normal. ABDOMEN: Slightly protuberant and nontender. Bowel sounds are present. EXTREMITIES: Normal. NEUROLOGICAL: He is in DTs. IMPRESSION: He was admitted to the hospital with diagnosis of: 1. Delirium tremens. 2. Chronic alcoholism. 3. Acute alcohol intoxication. 4. Dehydration. 5. Hyponatremia. PLAN: 1. Bed rest. 2. CIWA protocol. 3. Correct electrolyte imbalance. MMODL / FIDELINAN: [id number] /
[2022-10-12] MEDS: THIAMINE 100 MG TAB PO SCH (08:08)
[2022-10-12] MEDS: DEXTROSE 5%-0.45% NACL 1,000 ML IV SCH ×3 (08:08→12:52)
[2022-10-12 11:49] LABS: Basophils % (A) 0 %; Eosinophils # (A) 0.1 k/uL (0-0.7); Eosinophils % (A) 1 %; HCT 28.9 % (39.0-53.0); HGB 10.3 gm/dL (13.0-17.5); Lymphocytes # (A) 0.8 k/uL (1.0-4.8); Lymphocytes % (A) 18 %; MCH 35.5 pg (25.0-35.0); MCHC 35.8 g/dL (31.0-37.0); MCV 99.2 fL (80.0-100.0); Mean Platelet Volume 9.9; Monocytes # (A) 0.2 k/uL (0-1.0); Monocytes % (A) 6 %; Neutrophils % (A) 73 %; RBC 2.91 m/uL (4.30-5.90); RDW 14.5 % (11.5-15.5); WBC 4.1 k/uL (3.8-10.6)
[2022-10-12 11:59] LABS: Platelet Count 60 k/uL (150-450)
[2022-10-12 12:03] LABS: Prothrombin Time 10.6 sec (9.0-12.0)
[2022-10-12 12:07] LABS: ALT 44 U/L (4-49); AST 147 U/L (17-59); African American GFR (CKD) >90 (>60 ml/min/1.73 sqM); Albumin 3.8 g/dL (3.5-5.0); Albumin/Globulin Ratio 1.3; Alkaline Phosphatase 114 U/L (38-126); Anion Gap 11 mmol/L; Blood Urea Nitrogen <2 mg/dL (9-20); Calcium 8.4 mg/dL (8.4-10.2); Carbon Dioxide 26 mmol/L (22-30); Chloride 89 mmol/L (98-107); Glucose 128 mg/dL (74-99); Non-African American GFR(CKD) >90 (>60 ml/min/1.73 sqM); Sodium 126 mmol/L (137-145); Total Bilirubin 1.2 mg/dL (0.2-1.3); Total Protein 6.8 g/dL (6.3-8.2)
[2022-10-12 12:26] LABS: Potassium 2.5 mmol/L (3.5-5.1)
[2022-10-12] MEDS ORDERED: Potassium Replacement Protocol 1 EACH MISC MISCELLANE PRN ×2 (12:35→18:44)
[2022-10-12] MEDS ORDERED: POTASSIUM CHLORIDE ER 20 MEQ TAB.ER PO ONE (13:00)
[2022-10-12] MEDS: POTASSIUM CHLORIDE ER 20 MEQ TAB.ER PO SCH ×5 (13:56→23:05)
[2022-10-12] MEDS: DEXMEDETOMIDINE/0.9% NACL(PMX) 400 MCG in EMPTY BAG 1 BAG IV SCH (20:42)
[2022-10-12 20:43] LABS: Glucose,Whole Blood 130 mg/dL (70-110)
[2022-10-12] MEDS ORDERED: NALOXONE 0.4 MG/ML 1 ML VIAL IV PRN (20:59)
[2022-10-12] MEDS ORDERED: POTASSIUM CHLORIDE ER 20 MEQ TAB.ER PO SCH (21:00)
[2022-10-12] MEDS: GABAPENTIN 300 MG CAP PO SCH (21:51)
--- NOTE | 2022-10-12 22:06 | P.CNPUL ---
History of Present Illness Consult date: 10/12/22 Chief complaint: Delirium tremens History of present illness: 42-year-old male patient, alcoholic, who recently tried to quit alcohol drinking and subsequently went on a binge drinking. He presented to the emergency with dehydration, nausea, emesis and he had mild alcohol intoxication. At the same time, he had tripped over his dog and he had fallen on his face sustaining a injury to his right orbit and forehead. The patient presented with swelling in his lower lip and a bruise over the right orbit with a small hematoma. Normal eye movements. CAT scan of the brain was done and it showed no acute abnormalities. The patient was found to have an anterior right frontal scalp contusion. No fractures. The C-spine was also within normal limits. The CAT scan of the facial bones also showed minimal aggravation deformities of the bila teral nasal bones. There is a nondisplaced supple nasal bone fracture. There is also right supraorbital soft tissue swelling and there is no acute facial bone fracture seen. The patient was admitted to the hospital and on the medical floor the patient went into delirium tremens. He was given a combination of Ativan and Haldol and ultimately became severely agitated, and is currently in the intensive care unit on Precedex at 0.2 mcg/kg/m. Doing well. Awake and alert. Communicating. He was having some muscle cramping and his potassium level is currently at 2.0 which is being replaced. Sodium is at 126. BUN is less than 2 with a creatinine of 0.4. Normal LFTs. He has chronic thrombus cytopenia. No headaches. No altered mentation status and the patient was answering questions appropriately at this point in time. His alcohol level at time of admission was 80. His lactic acid level is at 1.9. He claims to drink a fifth of vodka on a daily basis. Review of Systems Constitutional: Reports as per HPI, Reports fatigue, Reports lethargy, Reports weakness, Reports weight loss Eyes: denies as per HPI, denies blurred vision, denies bulging eye, denies decreased vision, denies diplopia, denies discharge, denies dry eye, denies irritation, denies itching, denies pain, denies photophobia, denies loss of peripheral vision, denies loss of vision, denies tunnel vision/blind spots Ears: deny: decreased hearing, ear discharge, earache, tinnitus Ears, nose, mouth and throat: Reports as per HPI Breasts: absent: as per HPI, gynecomastia Cardiovascular: Reports as per HPI Respiratory: Reports as per HPI Gastrointestinal: Reports as per HPI Genitourinary: Reports as per HPI Musculoskeletal: Reports as per HPI Musculoskeletal: absent: ankle pain, ankle stiffness, ankle swelling, as per HPI, elbow pain, elbow stiffness, elbow swelling, foot pain, foot stiffness, foot swelling, hand pain, hand stiffness, hand swelling, hip pain, hip stiffness, hip swelling, knee pain, knee stiffness, knee swelling, shoulder pain, shoulder stiffness, shoulder swelling, wrist pain, wrist stiffness, wrist swelling Integumentary: Reports as per HPI (Bruising over the scalp and the right orbit), Reports color changes Neurological: Reports as per HPI, Reports change in mentation, Reports confusion Psychiatric: Reports as per HPI Endocrine: Reports as per HPI Hematologic/Lymphatic: Reports as per HPI Allergic/Immunologic: Reports as per HPI Past Medical History Past Medical History: Hyperlipidemia Additional Past Medical History / Comment(s): ETOH abuse/withdrawals, angioedema thought 2ndary to lisinopril. History of Any Multi-Drug Resistant Organisms: None Reported Past Surgical History: No Surgical Hx Reported Past Anesthesia/Blood Transfusion Reactions: Unable to Obtain Additional Past Anesthesia/Blood Transfusion Reaction / Comment(s): Pt has never had anesthesia Smoking Status: Current every day smoker - Past Family History Father Family Medical History: Hypertension Mother Family Medical History: Hypertension Medications and Allergies Home Medications Medication Instructions Recorded Confirmed Type ALPRAZolam [Xanax] 0.5 mg PO BID PRN 09/13/22 10/11/22 History Gabapentin [Neurontin] 300 mg PO BID 09/13/22 10/11/22 History Potassium Chloride ER [K-Dur 20] 40 meq PO BID 09/13/22 10/11/22 History Allergies Allergy/AdvReac Type Severity Reaction Status Date / Time lisinopril AdvReac angioedema Verified 10/11/22 13:13 Physical Exam Vitals: Vital Signs Temp Pulse Pulse Resp BP BP Pulse Ox 10/12/22 20:45 98.7 F 77 23 127/92 96 10/12/22 19:54 98.6 F 88 20 133/88 98 10/12/22 11:26 99.3 F 74 18 130/84 100 10/12/22 01:36 98.3 F 88 18 135/77 99 Intake and Output 10/12/22 10/12/22 10/12/22 06:59 14:59 22:59 Other: Voiding Method Bedside Commode Bedpan Urinal # Voids 1 1 # Bowel Movements 1 1 Gen. appearance the patient is calm and comfortable, he has a bruise over the right forehead and orbits. Head exam was generally normal. There was no scleral icterus or corneal arcus. Mucous membranes were moist. Neck was supple and without jugular venous distension, thyromegaly, or carotid bruits. Carotids were easily palpable bilaterally. There was no adenopathy. Lungs were clear to auscultation and percussion, and with normal diaphragmatic excursion. No wheezes or rales were noted. Cardiac exam revealed the PMI to be normally situated and sized. The rhythm was regular and no extrasystoles were noted during several minutes of auscultation. The first and second heart sounds were normal and physiologic splitting of the second heart sound was noted. There were no murmurs, rubs, clicks, or gallops. Abdominal exam revealed normal bowel sounds. The abdomen was soft, non-tender, and without masses, organomegaly, or appreciable enlargement of the abdominal aorta. Examination of the extremities revealed easily palpable radial, femoral and pedal pulses. There was no cyanosis, clubbing or edema. Skin shows multiple tattoos and the patient has a right orbital bruising along with the right forehead bruising. No open wounds or lesions. Neurologically, the patient is awake and alert and the patient does not have any focal neurological deficit. Cranial nerves are essentially intact. The extraocular muscle movement is within normal limits in the right eye. Results - Laboratory Findings CBC and BMP: 10/12/22 11:19 10/12/22 15:43 PT/INR, D-dimer PT 10.6 sec (9.0-12.0) 10/12/22 11:19 INR 1.0 (<1.2) 10/12/22 11:19 Abnormal lab findings: Abnormal Labs 10/11/22 10/11/22 10/11/22 11:09 11:09 11:09 RBC 3.35 L Hgb 11.7 L Hct 32.5 L MCH 35.1 H Plt Count 89 L Lymphocytes # Lymphocytes # (Manual) 0.64 L Sodium 118 L* Potassium 3.1 L Chloride 73 L* Carbon Dioxide 19 L BUN 4 L Creatinine Glucose 127 H POC Glucose (mg/dL) Plasma Lactic Acid Brandon 4.5 H* Calcium 8.2 L Total Bilirubin 1.4 H AST 208 H Alkaline Phosphatase 139 H Urine Protein Urine Ketones Urine Blood Hyaline Casts Urine Mucus 10/11/22 10/12/22 10/12/22 14:20 11:19 11:19 RBC 2.91 L Hgb 10.3 L Hct 28.9 L MCH 35.5 H Plt Count 60 L Lymphocytes # 0.8 L Lymphocytes # (Manual) Sodium 126 L Potassium 2.5 L* Chloride 89 L Carbon Dioxide BUN <2 L Creatinine 0.42 L Glucose 128 H POC Glucose (mg/dL) Plasma Lactic Acid Brandon Calcium Total Bilirubin AST 147 H Alkaline Phosphatase Urine Protein 2+ H Urine Ketones 2+ H Urine Blood Moderate H Hyaline Casts 17 H Urine Mucus Rare H 10/12/22 10/12/22 15:43 20:41 RBC Hgb Hct MCH Plt Count Lymphocytes # Lymphocytes # (Manual) Sodium Potassium 2.8 L Chloride Carbon Dioxide BUN Creatinine Glucose POC Glucose (mg/dL) 130 H Plasma Lactic Acid Brandon Calcium Total Bilirubin AST Alkaline Phosphatase Urine Protein Urine Ketones Urine Blood Hyaline Casts Urine Mucus - Diagnostic Findings Chest x-ray: image reviewed Assessment and Plan Plan: Delirium tremens with secondary agitation secondary to alcohol withdrawal and the patient is currently in the intensive care unit and currently is on a Precedex drip with adequate control of his agitation. In fact, her mentation was found to be appropriate in time my evaluation. Alcoholism with recent binge drinking Nausea and emesis and dehydration secondary to above Acute hyponatremia secondary to above Acute hypokalemia secondary to above Chronic thrombocytopenia secondary to alcoholism Fall and blunt trauma to the right forehead and orbit and the patient has a nondisplaced fracture of the nose bones. Chronic anxiety Plan IV fluids and the patient is currently on D5 normal saline at the rate of 150 mL an hour. Replace potassium Continue with Precedex drip and titrate for agitation Use Haldol and Ativan as needed Continue thiamine Monitor mentation Compression devices lower extremity double DVT prophylaxis Clear liquid diet overnight We'll continue to follow
[2022-10-12] MEDS: SODIUM CHLORIDE 0.9% 1,000 ML IV SCH (22:32)
[2022-10-13] MEDS: LORazepam 2 MG/ML INJ IV PRN ×5 (00:54→20:04)
[2022-10-13] MEDS ORDERED: Magnesium Replacement Protocol 1 EACH MISC MISCELLANE PRN (02:19)
[2022-10-13] MEDS: MAGNESIUM SULFATE-D5W PMX 1 GM in DEXTROSE/WATER 1 100ML.BAG IVPB SCH ×2 (02:25→03:23)
[2022-10-13] MEDS: DEXMEDETOMIDINE/0.9% NACL(PMX) 400 MCG in EMPTY BAG 1 BAG IV SCH (03:41)
[2022-10-13] MEDS: POTASSIUM CHLORIDE ER 20 MEQ TAB.ER PO SCH ×6 (04:34→21:30)
[2022-10-13 05:56] LABS: Basophils % (A) 0 %; Eosinophils # (A) 0.1 k/uL (0-0.7); Eosinophils % (A) 2 %; HCT 27.6 % (39.0-53.0); HGB 9.4 gm/dL (13.0-17.5); Lymphocytes # (A) 0.8 k/uL (1.0-4.8); Lymphocytes % (A) 28 %; MCH 34.6 pg (25.0-35.0); MCHC 34.1 g/dL (31.0-37.0); MCV 101.5 fL (80.0-100.0); Macrocytosis Slight; Mean Platelet Volume 8.9; Monocytes # (A) 0.2 k/uL (0-1.0); Monocytes % (A) 5 %; Neutrophils % (A) 63 %; Platelet Count 55 k/uL (150-450); RBC 2.72 m/uL (4.30-5.90); RDW 14.2 % (11.5-15.5); WBC 3.1 k/uL (3.8-10.6)
[2022-10-13 06:00] LABS: African American GFR (CKD) >90 (>60 ml/min/1.73 sqM); Anion Gap 4 mmol/L; Blood Urea Nitrogen <2 mg/dL (9-20); Calcium 8.3 mg/dL (8.4-10.2); Carbon Dioxide 26 mmol/L (22-30); Chloride 99 mmol/L (98-107); Glucose 123 mg/dL (74-99); Magnesium 2.3 mg/dL (1.6-2.3); Non-African American GFR(CKD) >90 (>60 ml/min/1.73 sqM); Potassium 2.9 mmol/L (3.5-5.1); Sodium 129 mmol/L (137-145)
[2022-10-13] MEDS: SODIUM CHLORIDE 0.9% 1,000 ML IV SCH ×3 (06:11→21:32)
[2022-10-13] MEDS ORDERED: ATROPINE SULFATE 0.1 MG/ML 10ML SYRINGE ONE (08:05)
[2022-10-13] MEDS: THIAMINE 100 MG TAB PO SCH (08:16)
--- NOTE | 2022-10-13 08:42 | P.PN ---
Subjective Progress Note Date: 10/13/22 42-year-old male patient, alcoholic, who recently tried to quit alcohol drinking and subsequently went on a binge drinking. He presented to the emergency with dehydration, nausea, emesis and he had mild alcohol intoxication. At the same time, he had tripped over his dog and he had fallen on his face sustaining a injury to his right orbit and forehead. The patient presented with swelling in his lower lip and a bruise over the right orbit with a small hematoma. Normal eye movements. CAT scan of the brain was done and it showed no acute abnormalities. The patient was found to have an anterior right frontal scalp contusion. No fractures. The C-spine was also within normal limits. The CAT scan of the facial bones also showed minimal aggravation deformities of the bilateral nasal bones. There is a nondisplaced supple nasal bone fracture. There is also right supraorbital soft tissue swelling and there is no acute facial bone fracture seen. The patient was admitted to the hospital and on the medical floor the patient went into delirium tremens. He was given a combination of Ativan and Haldol and ultimately became severely agitated, and is currently in the intensive care unit on Precedex at 0.2 mcg/kg/m. Doing well. Awake and alert. Communicating. He was having some muscle cramping and his potassium level is currently at 2.0 which is being replaced. Sodium is at 126. BUN is less than 2 with a creatinine of 0.4. Normal LFTs. He has chronic thrombus cytopenia. No headaches. No altered mentation status and the patient was answering questions appropriately at this point in time. His alcohol level at time of admission was 80. His lactic acid level is at 1.9. He claims to drink a fifth of vodka on a daily basis. On today's evaluation of 10/13/2022, the patient is resting comfortably in bed. The Precedex drip has been discontinued as the patient was encountered during some sinus bradycardia. His current heart rate is in the mid 60s. His calm and comfortable in his relaxing in bed. The blood work from today shows potassium level of 2.9 and this is being replaced. Sodium levels of 129. The white cell count is at 3.1 with a hemoglobin of 9.4 and a platelet count of 55. No significant agitation. IV fluids are in the form of 0.9 at 1 30 mL an hour. No focal neurological deficits. No nausea. No emesis. Tolerating diet. He was given clear liquid diet yesterday. Note that the Precedex those with high as 0.6 mcg/kg/h. Overnight, he did not receive any Ativan or Haldol. Objective - Vital Signs Vital signs: Vital Signs Temp 97.4 F L 10/13/22 08:00 Pulse 57 L 10/13/22 08:00 Resp 16 10/13/22 08:00 BP 114/91 10/13/22 08:00 Pulse Ox 100 10/13/22 08:00 FiO2 Intake & Output 10/12/22 10/13/22 10/13/22 18:59 06:59 18:59 Intake Total 1079.876 150.855 Output Total 0 Balance 1079.876 150.855 Weight 67.5 kg Intake: IV 980 130 Magnesium Sulfate-D5w Pmx 200 1 gm In Dextrose/Water 1 100ml.bag @ 100 mls/hr IVPB Q1H DANIELLE Rx#: [id number] Sodium Chloride 0.9% 1, 780 130 000 ml @ 130 mls/hr IV . Q7H42M DANIELLE Rx#:[id number] Intake, IV Titration 99.876 20.855 Amount Dexmedetomidine/0.9% NaCl 99.876 20.855 (Pmx) 400 mcg In Empty Bag 1 bag @ 0.2 MCG/KG/HR 3.697 mls/hr IV .Q24H DANIELLE Rx#:[id number] Output: Urine 0 Other: Voiding Method Bedside Commode Bedpan Urinal # Voids 8 1 1 # Bowel Movements 4 1 - Exam Gen. appearance the patient is calm and comfortable, he has a bruise over the right forehead and orbits. Head exam was generally normal. There was no scleral icterus or corneal arcus. Mucous membranes were moist. Neck was supple and without jugular venous distension, thyromegaly, or carotid bruits. Carotids were easily palpable bilaterally. There was no adenopathy. Lungs were clear to auscultation and percussion, and with normal diaphragmatic excursion. No wheezes or rales were noted. Cardiac exam revealed the PMI to be normally situated and sized. The rhythm was regular and no extrasystoles were noted during several minutes of auscultation. The first and second heart sounds were normal and physiologic splitting of the second heart sound was noted. There were no murmurs, rubs, clicks, or gallops. Abdominal exam revealed normal bowel sounds. The abdomen was soft, non-tender, and without masses, organomegaly, or appreciable enlargement of the abdominal aorta. Examination of the extremities revealed easily palpable radial, femoral and pedal pulses. There was no cyanosis, clubbing or edema. Skin shows multiple tattoos and the patient has a right orbital bruising along with the right forehead bruising. No open wounds or lesions. Neurologically, the patient is awake and alert and the patient does not have any focal neurological deficit. Cranial nerves are essentially intact. The extraocular muscle movement is within normal limits in the right eye. - Labs CBC & Chem 7: 10/13/22 05:31 10/13/22 05:31 Labs: Abnormal Lab Results - Last 24 Hours (Table) 10/12/22 10/12/22 10/12/22 Range/Units 11:19 11:19 15:43 WBC (3.8-10.6) k/uL RBC 2.91 L (4.30-5.90) m/uL Hgb 10.3 L (13.0-17.5) gm/dL Hct 28.9 L (39.0-53.0) % MCV (80.0-100.0) fL MCH 35.5 H (25.0-35.0) pg Plt Count 60 L (150-450) k/uL Lymphocytes # 0.8 L (1.0-4.8) k/uL Sodium 126 L (137-145) mmol/L Potassium 2.5 L* 2.8 L (3.5-5.1) mmol/L Chloride 89 L (98-107) mmol/L BUN <2 L (9-20) mg/dL Creatinine 0.42 L (0.66-1.25) mg/dL Glucose 128 H (74-99) mg/dL POC Glucose (mg/dL) (70-110) mg/dL Calcium (8.4-10.2) mg/dL Magnesium (1.6-2.3) mg/dL AST 147 H (17-59) U/L 10/12/22 10/13/22 10/13/22 Range/Units 20:41 00:56 00:56 WBC (3.8-10.6) k/uL RBC (4.30-5.90) m/uL Hgb (13.0-17.5) gm/dL Hct (39.0-53.0) % MCV (80.0-100.0) fL MCH (25.0-35.0) pg Plt Count (150-450) k/uL Lymphocytes # (1.0-4.8) k/uL Sodium (137-145) mmol/L Potassium 2.8 L (3.5-5.1) mmol/L Chloride (98-107) mmol/L BUN (9-20) mg/dL Creatinine (0.66-1.25) mg/dL Glucose (74-99) mg/dL POC Glucose (mg/dL) 130 H (70-110) mg/dL Calcium (8.4-10.2) mg/dL Magnesium 1.5 L (1.6-2.3) mg/dL AST (17-59) U/L 10/13/22 10/13/22 Range/Units 05:31 05:31 WBC 3.1 L (3.8-10.6) k/uL RBC 2.72 L (4.30-5.90) m/uL Hgb 9.4 L (13.0-17.5) gm/dL Hct 27.6 L (39.0-53.0) % MCV 101.5 H (80.0-100.0) fL MCH (25.0-35.0) pg Plt Count 55 L (150-450) k/uL Lymphocytes # 0.8 L (1.0-4.8) k/uL Sodium 129 L (137-145) mmol/L Potassium 2.9 L (3.5-5.1) mmol/L Chloride (98-107) mmol/L BUN <2 L (9-20) mg/dL Creatinine 0.34 L (0.66-1.25) mg/dL Glucose 123 H (74-99) mg/dL POC Glucose (mg/dL) (70-110) mg/dL Calcium 8.3 L (8.4-10.2) mg/dL Magnesium (1.6-2.3) mg/dL AST (17-59) U/L Assessment and Plan Plan: Delirium tremens with secondary agitation secondary to alcohol withdrawal and the patient is currently in the intensive care unit and currently is on a Precedex drip with adequate control of his agitation. The patient is currently off Precedex due to some sinus bradycardia. His calm and comfortable. We are monitoring his symptoms including any ongoing symptoms of any delirium tremens. Currently is resting comfortably in bed. Alcoholism with recent binge drinking Nausea and emesis and dehydration secondary to above Acute hyponatremia secondary to above, improving Acute hypokalemia secondary to above, potassium is being replaced Chronic thrombocytopenia secondary to alcoholism Fall and blunt trauma to the right forehead and orbit and the patient has a non displaced fracture of the nose bones. Chronic anxiety Plan IV fluids and the patient is currently on normal saline at the rate of 130 mL an hour. Replace potassium Discontinue Precedex drip We'll utilize Librium maintenance Use Haldol and Ativan as needed Continue thiamine Monitor mentation Compression devices lower extremity double DVT prophylaxis Clear liquid diet and will gradually advance diet as tolerated We'll continue to follow we'll keep in ICU for another 12-24 hours for further monitoring as the patient was taken off Precedex this morning. He has a sitter at the bedside.
[2022-10-13] MEDS: GABAPENTIN 300 MG CAP PO SCH ×2 (11:50→20:04)
--- NOTE | 2022-10-13 20:42 | PN ---
PROGRESS NOTE DATE OF SERVICE: 10/13/2022 CHIEF COMPLAINT: Acute alcohol intoxication. HISTORY OF PRESENT ILLNESS: This gentleman is improving. He is more awake and alert now. LABORATORY DATA: Laboratory studies revealed a white count of 3100 and hemoglobin 9.4. Platelets are 55,000. Potassium has come up from 2.8 to 3.6 and liver function studies were improved. PHYSICAL EXAMINATION: GENERAL: He is awake and alert. CHEST: Clear. CARDIAC: Normal. ABDOMEN: Soft, nontender. IMPRESSION: 1. Acute alcohol intoxication. 2. Delirium Tremens. 3. Thrombocytopenia. 4. Hypokalemia. 5. Alcoholic hepatitis. 6. Contusion in right forehead. PLAN: Continue with current IV fluids and CIWA protocol management. MEMO / FIDELINAN: [id number] /
--- NOTE | 2022-10-13 20:53 | PN ---
PROGRESS NOTE DATE OF SERVICE: 10/12/2022 LOCATION: 524. CHIEF COMPLAINT: Acute alcohol intoxication with electrolyte imbalance. HISTORY OF PRESENT ILLNESS: This gentleman remains very lethargic and in DTs. He has become extremely agitated from time to time and has required restraints. Haldol has helped. PHYSICAL EXAMINATION: HEENT: He has a contusion or ecchymosis above the right eyebrow. CHEST: Clear. CARDIAC: Normal with sinus tachycardia. ABDOMEN: Soft. IMPRESSION: 1. Acute alcohol intoxication. 2. Delirium tremens. 3. Contusion on the right forehead and right lateral orbital rim. PLAN: Continue on CIWA protocol and sedation as necessary. He will be moved to telemetry. MMODL / IJN: [id number] /
[2022-10-14] MEDS: LORazepam 2 MG/ML INJ IV PRN ×2 (02:13→09:31)
[2022-10-14 06:37] LABS: Basophils % (A) 0 %; Eosinophils % (A) 1 %; HCT 30.7 % (39.0-53.0); HGB 10.8 gm/dL (13.0-17.5); Lymphocytes # (A) 1.2 k/uL (1.0-4.8); Lymphocytes % (A) 29 %; MCHC 35.2 g/dL (31.0-37.0); Macrocytosis Slight; Mean Platelet Volume 8.9; Monocytes # (A) 0.5 k/uL (0-1.0); Monocytes % (A) 12 %; Neutrophils # (A) 2.3 k/uL (1.3-7.7); Neutrophils % (A) 55 %; RBC 3.01 m/uL (4.30-5.90); RDW 14.5 % (11.5-15.5); WBC 4.1 k/uL (3.8-10.6)
[2022-10-14 06:57] LABS: African American GFR (CKD) >90 (>60 ml/min/1.73 sqM); Anion Gap 9 mmol/L; Blood Urea Nitrogen <2 mg/dL (9-20); Calcium 8.8 mg/dL (8.4-10.2); Carbon Dioxide 23 mmol/L (22-30); Chloride 99 mmol/L (98-107); Glucose 103 mg/dL (74-99); Non-African American GFR(CKD) >90 (>60 ml/min/1.73 sqM); Sodium 131 mmol/L (137-145)
[2022-10-14 06:58] LABS: Platelet Count 80 k/uL (150-450)
[2022-10-14] MEDS ORDERED: Potassium Replacement Protocol 1 EACH MISC MISCELLANE PRN (06:59)
--- NOTE | 2022-10-14 08:35 | P.PN ---
Subjective Progress Note Date: 10/14/22 42-year-old male patient, alcoholic, who recently tried to quit alcohol drinking and subsequently went on a binge drinking. He presented to the emergency with dehydration, nausea, emesis and he had mild alcohol intoxication. At the same time, he had tripped over his dog and he had fallen on his face sustaining a injury to his right orbit and forehead. The patient presented with swelling in his lower lip and a bruise over the right orbit with a small hematoma. Normal eye movements. CAT scan of the brain was done and it showed no acute abnormalities. The patient was found to have an anterior right frontal scalp contusion. No fractures. The C-spine was also within normal limits. The CAT scan of the facial bones also showed minimal aggravation deformities of the bilateral nasal bones. There is a nondisplaced supple nasal bone fracture. There is also right supraorbital soft tissue swelling and there is no acute facial bone fracture seen. The patient was admitted to the hospital and on the medical floor the patient went into delirium tremens. He was given a combination of Ativan and Haldol and ultimately became severely agitated, and is currently in the intensive care unit on Precedex at 0.2 mcg/kg/m. Doing well. Awake and alert. Communicating. He was having some muscle cramping and his potassium level is currently at 2.0 which is being replaced. Sodium is at 126. BUN is less than 2 with a creatinine of 0.4. Normal LFTs. He has chronic thrombus cytopenia. No headaches. No altered mentation status and the patient was answering questions appropriately at this point in time. His alcohol level at time of admission was 80. His lactic acid level is at 1.9. He claims to drink a fifth of vodka on a daily basis. On today's evaluation of 10/13/2022, the patient is resting comfortably in bed. The Precedex drip has been discontinued as the patient was encountered during some sinus bradycardia. His current heart rate is in the mid 60s. His calm and comfortable in his relaxing in bed. The blood work from today shows potassium level of 2.9 and this is being replaced. Sodium levels of 129. The white cell count is at 3.1 with a hemoglobin of 9.4 and a platelet count of 55. No significant agitation. IV fluids are in the form of 0.9 at 1 30 mL an hour. No focal neurological deficits. No nausea. No emesis. Tolerating diet. He was given clear liquid diet yesterday. Note that the Precedex those with high as 0.6 mcg/kg/h. Overnight, he did not receive any Ativan or Haldol. On today's evaluation of 10/14/2022, the patient is off Precedex, his calm and comfortable, no agitation, no restlessness, no tremors, no confusion. He is on Librium. Overnight, he required a dose of Ativan also. The patient has a potassium of 3.0 to be replaced. His potassium was up to 3.6 and dropped down to 3.0. BUN is less than 2 with a creatinine of 0.3. Sodium is at 131. The white cell count is at 4.1 with a hemoglobin of 10.8. He is back on his Neuront in 300 mg twice a day. He is on oral potassium supplements. Is also taken multi vitamins. Objective - Vital Signs Vital signs: Vital Signs Temp 99.3 F 10/14/22 02:00 Pulse 93 10/14/22 02:00 Resp 13 10/14/22 02:00 BP 149/102 10/14/22 02:00 Pulse Ox 100 10/14/22 02:00 FiO2 Intake & Output 10/13/22 10/14/22 10/14/22 18:59 06:59 18:59 Intake Total 2648.439 1527 Output Total 0 800 Balance 1580.855 460 Intake: IV 1560 260 Sodium Chloride 0.9% 1, 1560 260 000 ml @ 130 mls/hr IV . Q7H42M DANIELLE Rx#:[id number] Intake, IV Titration 20.855 Amount Dexmedetomidine/0.9% NaCl 20.855 (Pmx) 400 mcg In Empty Bag 1 bag @ 0.2 MCG/KG/HR 3.697 mls/hr IV .Q24H DANIELLE Rx#:[id number] Oral 1000 Output: Urine 0 800 Other: Voiding Method Toilet Toilet # Voids 1 # Bowel Movements 1 - Exam Gen. appearance the patient is calm and comfortable, he has a bruise over the right forehead and orbits. Head exam was generally normal. There was no scleral icterus or corneal arcus. Mucous membranes were moist. Neck was supple and without jugular venous distension, thyromegaly, or carotid bruits. Carotids were easily palpable bilaterally. There was no adenopathy. Lungs were clear to auscultation and percussion, and with normal diaphragmatic excursion. No wheezes or rales were noted. Cardiac exam revealed the PMI to be normally situated and sized. The rhythm was regular and no extrasystoles were noted during several minutes of auscultation. The first and second heart sounds were normal and physiologic splitting of the second heart sound was noted. There were no murmurs, rubs, clicks, or gallops. Abdominal exam revealed normal bowel sounds. The abdomen was soft, non-tender, and without masses, organomegaly, or appreciable enlargement of the abdominal aorta. Examination of the extremities revealed easily palpable radial, femoral and pedal pulses. There was no cyanosis, clubbing or edema. Skin shows multiple tattoos and the patient has a right orbital bruising along with the right forehead bruising. No open wounds or lesions. Neurologically, the patient is awake and alert and the patient does not have any focal neurological deficit. Cranial nerves are essentially intact. The extraocular muscle movement is within normal limits in the right eye. - Labs CBC & Chem 7: 10/14/22 05:18 10/14/22 05:18 Labs: Abnormal Lab Results - Last 24 Hours (Table) 10/14/22 10/14/22 Range/Units 05:18 05:18 RBC 3.01 L (4.30-5.90) m/uL Hgb 10.8 L (13.0-17.5) gm/dL Hct 30.7 L (39.0-53.0) % MCV 102.0 H (80.0-100.0) fL MCH 36.0 H (25.0-35.0) pg Plt Count 80 L (150-450) k/uL Sodium 131 L (137-145) mmol/L Potassium 3.0 L (3.5-5.1) mmol/L BUN <2 L (9-20) mg/dL Creatinine 0.37 L (0.66-1.25) mg/dL Glucose 103 H (74-99) mg/dL Assessment and Plan Plan: Delirium tremens with secondary agitation secondary to alcohol withdrawal, recovered Alcoholism with recent binge drinking, presented initially with acute alcohol intoxication, recovered Nausea and emesis and dehydration secondary to above, recovered and the patient is tolerating diet Acute hyponatremia secondary to above, improving Acute hypokalemia secondary to above, potassium is being replaced Chronic thrombocytopenia secondary to alcoholism Fall and blunt trauma to the right forehead and orbit and the patient has a nondisplaced fracture of the nose bones. Chronic anxiety Plan IV fluids to KVO. Replace potassium Continue Librium May potentially transfer or discharge home today. We'll talk to the medical group regarding this issue.
[2022-10-14] MEDS: THIAMINE 100 MG TAB PO SCH (09:30)
[2022-10-14] MEDS: GABAPENTIN 300 MG CAP PO SCH (09:30)
[2022-10-14] MEDS: POTASSIUM CHLORIDE ER 20 MEQ TAB.ER PO SCH ×3 (09:31→14:58)
[2022-10-14 15:02] VITALS: BP 135/90; PULSE 86; RESP 17; TEMP 98.9
--- NOTE | 2022-10-15 01:29 | DS ---
DISCHARGE SUMMARY CHIEF COMPLAINT: Acute alcohol intoxication, DTs, and semicoma. HISTORY OF PRESENT ILLNESS AND PHYSICAL EXAMINATION: Details of this man's history and physical can be found in the initial workup. LABORATORY STUDIES: While he was in the hospital, he had laboratory studies, details of which can be found in the laboratory section of his chart. COURSE IN THE HOSPITAL: After admission, he was placed on bedrest and started on IVs and CIWA protocol. He went to the floor with DTs, and eventually had to be transferred to ICU. There, he was sedated until he became more awake and alert and DTs had resolved. He was doing well. It was felt that he could be discharged on the . He will follow up in the office in a day or 2. FINAL DIAGNOSES: 1. Acute alcohol intoxication. 2. Alcoholic encephalopathy. 3. Alcoholic hepatitis. 4. Chronic alcoholism. 5. Hypokalemia. OPERATIONS: None. CONSULTATIONS: ICU management. MEMO / WILLY: [id number] /
== END 2022-10-14 15:41 | disposition home or self-care (01) | DRG 775 ==
LOC: EC 10:16 → 5NMEDONC 13:43 → 2SICU 10-12 20:38
PROVIDERS: ADMIT Family Medicine; ATTEND Family Medicine
PROC: 05HC33Z Insertion of Infusion Device into Left Basilic Vein, Percutaneous Approach (ICD-10-PCS; principal; 2022-10-13 09:00)
DX: F10.229 Alcohol dependence with intoxication, unspecified (principal); D69.6 Thrombocytopenia, unspecified; E78.5 Hyperlipidemia, unspecified; E87.1 Hypo-osmolality and hyponatremia; E86.0 Dehydration; E87.6 Hypokalemia; F10.231 Alcohol dependence with withdrawal delirium; F17.200 Nicotine dependence, unspecified, uncomplicated; G31.2 Degeneration of nervous system due to alcohol; Y90.4 Blood alcohol level of 80-99 mg/100 ml; E87.20 Acidosis, unspecified; K70.10 Alcoholic hepatitis without ascites; S00.03XA Contusion of scalp, initial encounter; W01.0XXA Fall on same level from slipping, tripping and stumbling without subsequent striking against object, initial encounter; S02.2XXA Fracture of nasal bones, initial encounter for closed fracture; Z78.1 Physical restraint status; Z79.899 Other long term (current) drug therapy
CPT/HCPCS: 36410; 36415; 70450; 70486; 71046; 72125; 76937; 80048; 80053; 80320; 81001; 82140; 82150; 83605; 83690; 83735; 84132; 85025; 85610; 85730; 93005; 96361; 96372; 96374; 96375; 96376; 99291

== ENCOUNTER 2023-01-25 18:54 | Observation (INO) | payer OTHER ==
[2023-01-25] MEDS ORDERED: ONDANSETRON 4 MG/2 ML VIAL IVP STA (20:04)
[2023-01-25] MEDS ORDERED: SODIUM CHLORIDE 0.9% 1,000 ML IV STA (20:04)
[2023-01-25] MEDS ORDERED: THIAMINE 100 MG/ML 2 ML VIAL IVP STA (20:06)
--- NOTE | 2023-01-25 20:41 | XR ---
EXAMINATION TYPE: XR chest 2V DATE OF EXAM: 01/25/2023 8:25 PM CLINICAL INDICATION:Male, 42 years old with history of Cough; COMPARISON: Chest radiographs from 10/11/2022 TECHNIQUE: XR chest 2V Frontal and lateral views of the chest. FINDINGS: Lungs/Pleura: There is no evidence of pleural effusion, focal consolidation, or pneumothorax. Pulmonary vascularity: Unremarkable. Heart/mediastinum: Cardiomediastinal silhouette is unremarkable. Musculoskeletal: No acute osseous pathology. IMPRESSION: No acute cardiopulmonary disease/process.
--- NOTE | 2023-01-25 20:45 | XR ---
EXAMINATION TYPE: XR KUB DATE OF EXAM: 01/25/2023 8:25 PM CLINICAL INDICATION:Male, 42 years old with history of Vomiting; [facility] COMPARISON: None. TECHNIQUE: One radiographic view of the abdomen was obtained. FINDINGS: The bowel gas pattern is nonspecific without dilated loops of small or large bowel. There i s no evidence for organomegaly or pneumoperitoneum. The osseous structures are intact. No abnormal calcifications are present. Fecal material and gas are demonstrated throughout the colon and rectum. IMPRESSION: Nonspecific bowel gas pattern without radiographic evidence for acute process.
[2023-01-25 21:10] LABS: Basophils % (A) 0 %; Eosinophils % (A) 1 %; HCT 40.1 % (39.0-53.0); HGB 14.7 gm/dL (13.0-17.5); Lymphocytes # (A) 1.8 k/uL (1.0-4.8); Lymphocytes % (A) 23 %; MCH 34.3 pg (25.0-35.0); MCHC 36.5 g/dL (31.0-37.0); MCV 93.8 fL (80.0-100.0); Mean Platelet Volume 8.1; Monocytes # (A) 0.5 k/uL (0-1.0); Monocytes % (A) 6 %; Neutrophils # (A) 5.1 k/uL (1.3-7.7); Neutrophils % (A) 69 %; Platelet Count 132 k/uL (150-450); RBC 4.28 m/uL (4.30-5.90); RDW 13.2 % (11.5-15.5); WBC 7.5 k/uL (3.8-10.6)
--- NOTE | 2023-01-25 21:10 | ED ---
Nausea/Vomiting/Diarrhea HPI - General Chief complaint: Nausea/Vomiting/Diarrhea Stated complaint: Dehydration,poss Seizures Time Seen by Provider: 01/25/23 19:55 Source: patient, RN notes reviewed Mode of arrival: ambulatory - History of Present Illness Initial comments: . This is a 42-year-old male presents complaining of body aches, vomiting, fatigue, denying any hematemesis or coffee-ground emesis. His vomit several times over the past 12 hours. Some diarrhea. Cough, shortness of breath with some chest tightness. Subjective fever. Patient has a history of hypokalemia. History of alcohol abuse. HEENT secondary to complex regional pain syndrome. No headache, no fever or chills, no changes in vision or hearing, no sore throat or difficulty with speech, no neck pain, no chest pain or shortness of breath, no abdominal pain, no nausea or vomiting, no changes in urination or bowel movements, no numbness or tingling, no extremity pain, no skin rashes or lesions . Past medical, surgical, social, and family history reviewed. MD complaint: nausea, vomiting - Related Data Home Medications Medication Instructions Recorded Confirmed Gabapentin [Neurontin] 300 mg PO BID PRN 09/13/22 01/25/23 Potassium Chloride ER [K-Dur 20] 40 meq PO BID 09/13/22 01/25/23 Atomoxetine HCl 40 mg PO DAILY 01/25/23 01/25/23 Ergocalciferol (Vitamin D2) 1,250 mcg PO Q30D 01/25/23 01/25/23 [Drisdol (50,000 Iu)] Allergies Allergy/AdvReac Type Severity Reaction Status Date / Time lisinopril AdvReac angioedema Verified 01/25/23 19:05 Review of Systems ROS Statement: Those systems with pertinent positive or pertinent negative responses have been documented in the HPI. ROS Other: All systems not noted in ROS Statement are negative. Past Medical History Past Medical History: Hyperlipidemia Additional Past Medical History / Comment(s): ETOH abuse/withdrawals, angioedema thought 2ndary to lisinopril. History of Any Multi-Drug Resistant Organisms: None Reported Past Surgical History: No Surgical Hx Reported Past Anesthesia/Blood Transfusion Reactions: Unable to Obtain Additional Past Anesthesia/Blood Transfusion Reaction / Comment(s): Pt has never had anesthesia Past Psychological History: No Psychological Hx Reported Smoking Status: Current every day smoker Past Alcohol Use History: Occasional Past Drug Use History: None Reported - Past Family History Father Family Medical History: Hypertension Mother Family Medical History: Hypertension General Exam - General Exam Comments Initial Comments: Tachycardic. Capillary refill less than 2 seconds. Alert 94. Cranial nerves II through XII grossly intact. Ears be somewhat ill but not toxic. No mottling. General appearance: alert Head exam: Present: atraumatic, normocephalic, normal inspection Eye exam: Present: normal appearance, PERRL, EOMI. Absent: scleral icterus, conjunctival injection, periorbital swelling ENT exam: Present: normal exam, normal oropharynx, mucous membranes moist, normal external ear exam. Absent: mucous membranes dry Neck exam: Present: normal inspection, full ROM. Absent: tenderness, meningismus, lymphadenopathy Respiratory exam: Present: normal lung sounds bilaterally. Absent: respiratory distress, wheezes, rales, rhonchi, stridor, chest wall tenderness, decreased breath sounds, prolonged expiratory Cardiovascular Exam: Present: normal rhythm, tachycardia, normal heart sounds. Absent: regular rate, systolic murmur, diastolic murmur, rubs, gallop, clicks GI/Abdominal exam: Present: tenderness (Epigastric), guarding, hyperactive bowel sounds. Absent: distended, rebound, rigid Extremities exam: Present: normal inspection, full ROM, normal capillary refill. Absent: tenderness, pedal edema, joint swelling, calf tenderness Back exam: Present: normal inspection Neurological exam: Present: alert, oriented X3, CN II-XII intact Psychiatric exam: Present: normal affect, normal mood Skin exam: Present: warm, dry, intact, normal color. Absent: rash Course Vital Signs 01/25/23 01/25/23 01/25/23 19:05 21:18 22:00 Temperature 98.0 F 97.9 F Pulse Rate 115 H 71 80 Respiratory 18 20 18 Rate Blood Pressure 122/81 127/91 127/80 O2 Sat by Pulse 96 96 98 Oximetry 01/25/23 23:07 Temperature Pulse Rate 73 Respiratory 18 Rate Blood Pressure O2 Sat by Pulse 98 Oximetry - Reevaluation(s) Reevaluation #1: 01/25/23 21:11 Reevaluated, resting comfortably in bed. No distress. Reevaluation #2: 01/25/23 21:55 History reevaluated, had an episode of vomiting. We'll order additional antiemetics in the diphenhydramine. Computed tomography scan abdomen and pelvis ordered after the patient's lipase came back elevated. He should also noted to have an elevated lactic acid, likely related to alcoholic lactic acidosis. - Consultations Consultation #1: Case discussed in detail with the patient's primary care physician, Dr. Bae, but sepsis admission of patient. Medical Decision Making - Medical Decision Making Was pt. sent in by a medical professional or institution? @ -[no] Did you speak to anyone other than the patient for history? @ -[None Did you review nursing and triage notes? @ -Really Were old charts reviewed? @ -Old charts, laboratory values, imaging reviewed. Differential Diagnosis? @ -Differential diagnosis includes but not limited to: Alcoholic intoxication, alcoholic lactic acidosis, pancreatitis, electrolyte disturbance, peptic ulcer disease, less likely perforated viscus, does not fit the clinical picture of cardiopulmonary disease. Unlikely to be a bowel obstruction. EKG interpreted by me (3pts min.)? @ -[EKG independently interpreted by me at 2037 reveals rate of 91, normal intervals, normal axis, no ST or T-wave changes. Normal QRS morphology. X-rays interpreted by me (1pt min.)? @ -Plain film x-rays of the chest and abdomen as read by me show no evidence of acute pathology. CT interpreted by me (1pt min.)? @ -Independent interpretation a computed tomography scan shows evidence of mild pancreatic inflammation. Awaiting radiology interpretation. U/S interpreted by me (1pt. min.)? @ -[none] What testing was considered but not performed? (CT, X-rays, U/S, labs)? Why? @ none What meds were considered but not given? Why? @ -[none] Did you discuss the management of the patient with other professionals? @ -Case discussed with the patient's admitting physician, Dr. Bae Did you reconcile home meds? @ -Yes Was smoking cessation discussed for >3mins.? @ -Yes,I discussed smoking cessation for greater than 3 minutes. The risks of smoking were discussed with the patient including but not limited to risks of cancer, stroke, coronary artery disease and COPD. Also discussed with the patient were multiple methods of quitting smoking. Lastly we discussed the financial costs of smoking. Was critical care preformed (if so, how long)? @ -mp Were there social determinants of health that impacted care today? How? (Homelessness, low income, unemployed, alcoholism, drug addiction, transportation, low edu. Level, literacy, decrease access to med. care, half-way, rehab)? @ -Alcohol abuse, cigarette smoking Was there de-escalation of care discussed even if they declined? (Discuss DNR or withdrawal of care, Hospice)? @ -no What co-morbidities impacted this encounter? (DM, HTN, Smoking, COPD, CAD, Cancer, CVA, Hep., AIDS, mental health diagnosis, sleep apnea, morbid obesity)? @ -Chronic pain, alcoholism, cigarette smoking, hypokalemia Was patient admitted / discharged? @ -Admitted, fair condition Undiagnosed new problem with uncertain prognosis? @ -[none] Drug Therapy requiring intensive monitoring for toxicity (Heparin, Nitro, Insulin, Cardizem)? @ -[none] Were any procedures done? @ -[none] Diagnosis/symptom? @ -Alcohol intoxicationexacerbation, alcoholic lactic acidosis, hypokalemia, pancreatitisacute Acute, or Chronic, or Acute on Chronic? @ -Acute alcohol intoxication and chronic alcohol abuse, acute pancreatitis, chronic hypokalemia, chronic cigarette smoking, alcoholic lactic acidosis. Uncomplicated (without systemic symptoms) or Complicated (systemic symptoms)? @ -Certainly pancreatitis could cause threat to life or bodily function, systemic symptoms, complicated, lactic acidosis likely related to alcohol use. Hypokalemia; cause threat to life or bodily function. Cigarette smoking is a long-term issue. Side effects of treatment? @ -[none] Exacerbation, Progression, or Severe Exacerbation] @ -Exacerbation of alcohol abuse, Poses a threat to life or bodily function? @ -Yes Admission discussed in detail with the patient. Patient concurs with this treatment plan. Discussed with the admitting physician. Computed tomography scan results are pending. The case was discussed in detail with ED attending physician. Presentation, findings, treatment plan discussed in detail. - Lab Data Result diagrams: 01/25/23 20:33 01/25/23 20:33 Lab Results 01/25/23 01/25/23 01/25/23 Range/Units 20:33 20:33 20:33 WBC 7.5 (3.8-10.6) k/uL RBC 4.28 L (4.30-5.90) m/uL Hgb 14.7 (13.0-17.5) gm/dL Hct 40.1 (39.0-53.0) % MCV 93.8 (80.0-100.0) fL MCH 34.3 (25.0-35.0) pg MCHC 36.5 (31.0-37.0) g/dL RDW 13.2 (11.5-15.5) % Plt Count 132 L (150-450) k/uL MPV 8.1 Neutrophils % 69 % Lymphocytes % 23 % Monocytes % 6 % Eosinophils % 1 % Basophils % 0 % Neutrophils # 5.1 (1.3-7.7) k/uL Lymphocytes # 1.8 (1.0-4.8) k/uL Monocytes # 0.5 (0-1.0) k/uL Eosinophils # 0.0 (0-0.7) k/uL Basophils # 0.0 (0-0.2) k/uL PT 12.3 (10.0-12.5) sec INR 1.1 (<1.2) APTT 28.2 (22.0-30.0) sec D-Dimer 0.47 (<0.60) mg/L FEU Sodium 125 L (137-145) mmol/L Potassium 3.2 L (3.5-5.1) mmol/L Chloride 75 L (98-107) mmol/L Carbon Dioxide 32 H (22-30) mmol/L Anion Gap 18 mmol/L BUN 15 (9-20) mg/dL Creatinine 0.69 (0.66-1.25) mg/dL Est GFR (CKD-EPI)AfAm >90 (>60 ml/min/1.73 sqM) Est GFR (CKD-EPI)NonAf >90 (>60 ml/min/1.73 sqM) Glucose 163 H (74-99) mg/dL Plasma Lactic Acid Brandon (0.7-2.0) mmol/L Calcium 9.2 (8.4-10.2) mg/dL Magnesium 1.9 (1.6-2.3) mg/dL Total Bilirubin 2.0 H (0.2-1.3) mg/dL AST 302 H (17-59) U/L ALT 130 H (4-49) U/L Alkaline Phosphatase 124 (38-126) U/L Troponin I (0.000-0.034) ng/mL Total Protein 7.9 (6.3-8.2) g/dL Albumin 4.8 (3.5-5.0) g/dL Lipase 481 H (23-300) U/L Serum Alcohol 329 H* mg/dL Influenza Type A (PCR) (Not Detectd) Influenza Type B (PCR) (Not Detectd) RSV (PCR) (Not Detectd) SARS-CoV-2 (PCR) (Not Detectd) 01/25/23 01/25/23 01/25/23 Range/Units 20:33 20:33 20:33 WBC (3.8-10.6) k/uL RBC (4.30-5.90) m/uL Hgb (13.0-17.5) gm/dL Hct (39.0-53.0) % MCV (80.0-100.0) fL MCH (25.0-35.0) pg MCHC (31.0-37.0) g/dL RDW (11.5-15.5) % Plt Count (150-450) k/uL MPV Neutrophils % % Lymphocytes % % Monocytes % % Eosinophils % % Basophils % % Neutrophils # (1.3-7.7) k/uL Lymphocytes # (1.0-4.8) k/uL Monocytes # (0-1.0) k/uL Eosinophils # (0-0.7) k/uL Basophils # (0-0.2) k/uL PT (10.0-12.5) sec INR (<1.2) APTT (22.0-30.0) sec D-Dimer (<0.60) mg/L FEU Sodium (137-145) mmol/L Potassium (3.5-5.1) mmol/L Chloride (98-107) mmol/L Carbon Dioxide (22-30) mmol/L Anion Gap mmol/L BUN (9-20) mg/dL Creatinine (0.66-1.25) mg/dL Est GFR (CKD-EPI)AfAm (>60 ml/min/1.73 sqM) Est GFR (CKD-EPI)NonAf (>60 ml/min/1.73 sqM) Glucose (74-99) mg/dL Plasma Lactic Acid Barndon 4.3 H* (0.7-2.0) mmol/L Calcium (8.4-10.2) mg/dL Magnesium (1.6-2.3) mg/dL Total Bilirubin (0.2-1.3) mg/dL AST (17-59) U/L ALT (4-49) U/L Alkaline Phosphatase (38-126) U/L Troponin I <0.012 (0.000-0.034) ng/mL Total Protein (6.3-8.2) g/dL Albumin (3.5-5.0) g/dL Lipase (23-300) U/L Serum Alcohol mg/dL Influenza Type A (PCR) Not Detected (Not Detectd) Influenza Type B (PCR) Not Detected (Not Detectd) RSV (PCR) Not Detected (Not Detectd) SARS-CoV-2 (PCR) Not Detected (Not Detectd) Disposition Clinical Impression: Acute pancreatitis, Lactic acidosis, Hypokalemia, Alcohol intoxication Disposition: ADMITTED IP TO THIS [facility] Condition: Fair Is patient prescribed a controlled substance at d/c from ED?: No Referrals: Schuyler Bae MD [Primary Care Provider] - 1-2 days
[2023-01-25 21:21] LABS: ALT 130 U/L (4-49); AST 302 U/L (17-59); African American GFR (CKD) >90 (>60 ml/min/1.73 sqM); Albumin 4.8 g/dL (3.5-5.0); Alkaline Phosphatase 124 U/L (38-126); Anion Gap 18 mmol/L; Blood Urea Nitrogen 15 mg/dL (9-20); Calcium 9.2 mg/dL (8.4-10.2); Carbon Dioxide 32 mmol/L (22-30); Chloride 75 mmol/L (98-107); Glucose 163 mg/dL (74-99); Magnesium 1.9 mg/dL (1.6-2.3); Non-African American GFR(CKD) >90 (>60 ml/min/1.73 sqM); Potassium 3.2 mmol/L (3.5-5.1); Sodium 125 mmol/L (137-145); Total Protein 7.9 g/dL (6.3-8.2)
[2023-01-25 21:27] LABS: INR 1.1 (<1.2); Partial Thromboplastin Time 28.2 sec (22.0-30.0); Prothrombin Time 12.3 sec (10.0-12.5)
[2023-01-25 21:44] LABS: Alcohol 329 mg/dL; Lipase 481 U/L (23-300)
[2023-01-25] MEDS ORDERED: diphenhydrAMINE 50 MG/ML 1 ML VIAL IVP STA (21:55)
[2023-01-25] MEDS ORDERED: METOCLOPRAMIDE 5 MG/ML 2 ML VIAL IVP STA (21:55)
[2023-01-25] MEDS: 1: MVI, ADULT NO.4 WITH VIT K 10 ML, THIAMINE 100 MG, FOLIC ACID 1 MG in SODIUM CHLORIDE IV SCH ×4 (23:02)
[2023-01-25] MEDS ORDERED: POTASSIUM CHLORIDE 20 MEQ in WATER FOR INJECTION 1 100ML.BAG IVPB STA (23:26)
[2023-01-25] MEDS ORDERED: NALOXONE 0.4 MG/ML 1 ML VIAL IV PRN (23:44)
[2023-01-25] MEDS ORDERED: GABAPENTIN 300 MG CAP PO PRN (23:49)
[2023-01-25] MEDS ORDERED: THIAMINE 100 MG/ML 2 ML VIAL IM STA (23:50)
[2023-01-25] MEDS ORDERED: LORazepam 2 MG/ML INJ IV PRN (23:50)
[2023-01-26] MEDS: MAGNESIUM SULFATE-D5W PMX 1 GM in DEXTROSE/WATER 1 100ML.BAG IVPB SCH ×2 (00:17→02:02)
--- NOTE | 2023-01-26 00:19 | CT ---
EXAM: CT Abdomen and Pelvis With Intravenous Contrast CLINICAL HISTORY: ITS.REASON CT Reason: Epigastric abdominal pain, pancreatitis TECHNIQUE: Axial computed tomography images of the abdomen and pelvis with intravenous contrast. CTDI is 14.5 mGy and DLP is 699.6 mGy-cm. This CT exam was performed using one or more of the following dose reduction techniques: automated exposure control, adjustment of the mA and/or kV according to patient size, and/or use of iterative reconstruction technique. COMPARISON: No relevant prior studies available. FINDINGS: Lung bases: Unremarkable. No mass. No consolidation. Mediastinum: Wall thickening of the distal esophagus, correlate for esophagitis. Nonemergent upper GI endoscopy recommended. ABDOMEN: Liver: Unremarkable. No mass. Gallbladder and bile ducts: Unremarkable. No calcified stones. No ductal dilation. Pancreas: Unremarkable. No ductal dilation. No CT evidence of pancreatitis. Spleen: Unremarkable. No splenomegaly. Adrenals: Unremarkable. No mass. Kidneys and ureters: Unremarkable. No solid mass. No hydronephrosis. Stomach and bowel: Mild wall thickening of small bowel, correlate for mild enteritis. PELVIS: Appendix: No findings to suggest acute appendicitis. Bladder: Unremarkable. No mass. Reproductive: Unremarkable as visualized. ABDOMEN and PELVIS: Intraperitoneal space: Unremarkable. No free air. No significant fluid collection. Bones/joints: No acute fracture. No dislocation. Soft tissues: Unremarkable. Vasculature: Unremarkable. No abdominal aortic aneurysm. Lymph nodes: Unremarkable. No enlarged lymph nodes. IMPRESSION: 1. No CT evidence of pancreatitis. 2. Wall thickening of the distal esophagus, correlate for esophagitis. Nonemergent upper GI endoscopy recommended. 3. Mild wall thickening of small bowel, correlate for mild enteritis.
[2023-01-26 00:50] LABS: Amphetamine Screen,Urine Not Detected (NotDetected); Barbiturate Screen,Urine Not Detected (NotDetected); Benzodiazepines Screen,Urine Not Detected (NotDetected); Cocaine Screen,Urine Not Detected (NotDetected); Methadone Screen, Urine Not Detected (NotDetected); Opiate Screen,Urine Not Detected (NotDetected); Oxycodone Screen, Urine Not Detected (NotDetected); Phencyclidine Screen,Urine Not Detected (NotDetected); Tricyclic Antidepressant,Urine Not Detected (NotDetected); Urn Cannabinoid Scrn Detected (NotDetected)
[2023-01-26 00:51] LABS: Appearance,Urine Clear (Clear); Bilirubin,Urine Negative (Negative); Blood,Urine Negative (Negative); Color,Urine Yellow; Glucose,Urine (UA) Negative (Negative); Ketones,Urine Negative (Negative); PH, Urine 7.5 (5.0-8.0); Protein,Urine Negative (Negative); Specific Gravity,Urine 1.013 (1.001-1.035); Urobilinogen,Urine <2.0 mg/dL (<2.0)
[2023-01-26 00:52] LABS: Leukocyte Esterase,Urine Negative (Negative); Nitrite,Urine Negative (Negative)
[2023-01-26] MEDS: PANTOPRAZOLE 40 MG/10 ML VIAL IV SCH ×2 (02:02→10:50)
[2023-01-26] MEDS: HEPARIN SODIUM,PORCINE 5,000 UNIT/ML 1 ML VIAL SQ SCH ×3 (02:02→16:13)
[2023-01-26 03:23] LABS: GGT 455 U/L (0-73)
[2023-01-26] MEDS: POTASSIUM CHLORIDE 20 MEQ in WATER FOR INJECTION 1 100ML.BAG IVPB ONE ×2 (03:31→05:03)
[2023-01-26] MEDS: ONDANSETRON 4 MG/2 ML VIAL IVP PRN ×3 (05:44→21:56)
[2023-01-26 08:29] LABS: Basophils % (A) 0 %; Eosinophils % (A) 0 %; HCT 36.4 % (39.0-53.0); HGB 12.7 gm/dL (13.0-17.5); Lymphocytes # (A) 1.2 k/uL (1.0-4.8); Lymphocytes % (A) 26 %; MCH 33.4 pg (25.0-35.0); MCHC 34.9 g/dL (31.0-37.0); MCV 95.5 fL (80.0-100.0); Mean Platelet Volume 7.7; Monocytes # (A) 0.3 k/uL (0-1.0); Monocytes % (A) 7 %; Neutrophils % (A) 64 %; Platelet Count 127 k/uL (150-450); RBC 3.81 m/uL (4.30-5.90); WBC 4.7 k/uL (3.8-10.6)
[2023-01-26 08:44] LABS: ALT 110 U/L (4-49); AST 183 U/L (17-59); African American GFR (CKD) >90 (>60 ml/min/1.73 sqM); Alkaline Phosphatase 113 U/L (38-126); Amylase 39 U/L (30-110); Anion Gap 14 mmol/L; Blood Urea Nitrogen 16 mg/dL (9-20); Calcium 8.3 mg/dL (8.4-10.2); Carbon Dioxide 25 mmol/L (22-30); Chloride 88 mmol/L (98-107); Glucose 122 mg/dL (74-99); LDH 289 U/L (120-246); Lipase 116 U/L (23-300); Magnesium 2.1 mg/dL (1.6-2.3); Non-African American GFR(CKD) >90 (>60 ml/min/1.73 sqM); Potassium 3.6 mmol/L (3.5-5.1); Sodium 127 mmol/L (137-145); Total Bilirubin 1.6 mg/dL (0.2-1.3); Total Protein 6.8 g/dL (6.3-8.2)
[2023-01-26] MEDS: POTASSIUM CHLORIDE ER 20 MEQ TAB.ER PO SCH ×2 (09:25→20:11)
[2023-01-26] MEDS: THIAMINE 100 MG TAB PO SCH (09:25)
[2023-01-26] MEDS: 1: MVI, ADULT NO.4 WITH VIT K 10 ML, THIAMINE 100 MG, FOLIC ACID 1 MG in SODIUM CHLORIDE IV SCH ×12 (10:50→22:06)
[2023-01-26] MEDS: ATOMOXETINE HCL 40 MG PO SCH (11:15)
[2023-01-27] MEDS: HEPARIN SODIUM,PORCINE 5,000 UNIT/ML 1 ML VIAL SQ SCH ×3 (00:28→17:10)
[2023-01-27] MEDS: ONDANSETRON 4 MG/2 ML VIAL IVP PRN ×2 (06:00→14:07)
[2023-01-27 07:47] VITALS: RESP 12
[2023-01-27] MEDS: THIAMINE 100 MG TAB PO SCH (08:48)
[2023-01-27] MEDS: POTASSIUM CHLORIDE ER 20 MEQ TAB.ER PO SCH (08:48)
[2023-01-27] MEDS: PANTOPRAZOLE 40 MG/10 ML VIAL IV SCH (08:48)
[2023-01-27] MEDS: ATOMOXETINE HCL 40 MG PO SCH (10:06)
[2023-01-27 14:38] VITALS: BP 140/84; PULSE 58; TEMP 98.2
[2023-01-27] MEDS: 1: MVI, ADULT NO.4 WITH VIT K 10 ML, THIAMINE 100 MG, FOLIC ACID 1 MG in SODIUM CHLORIDE IV SCH ×4 (17:10)
--- NOTE | 2023-01-28 05:17 | HP ---
HISTORY AND PHYSICAL CHIEF COMPLAINT: Acute alcohol intoxication and DTs. HISTORY OF PRESENT ILLNESS: This is another admission for this 42-year-old white male, alcoholic. He presented to the emergency room with acute alcohol intoxication and impending DTs. REVIEW OF SYSTEMS: Cannot be reliably obtained. Past medical history, family history, and personal and social histories are otherwise unchanged and noncontributory. He was in the office several days ago. MEDICATIONS: He has been on, 1. Strattera. 2. Motrin. 3. Albuterol inhaler. 4. Gabapentin. ALLERGIES: Not allergic to anything. SOCIAL HISTORY: He drinks every day and calls himself a recovering alcoholic. He does smoke. PHYSICAL EXAMINATION: VITAL SIGNS: Pulse is 115 and blood pressure is 120/65. GENERAL: He appeared to be intoxicated. SKIN: Dry. Skin color is normal. HEENT: Head, ears, eyes, nose, mouth and throat were normal. CHEST: Clear. CARDIAC: Normal. ABDOMEN: Soft and nontender without any masses or visceromegaly. EXTREMITIES: Normal. NEUROLOGICAL: He was lethargic, but intact. DIAGNOSES: Admitted to the hospital with diagnoses, acute alcohol intoxication and DTs. PLAN: 1. Bed rest. 2. IV fluids. 3. CIWA protocol. MMODL / IJN: [id number] /
[2023-01-28] MEDS ORDERED: ERGOCALCIFEROL 1,250 MCG (50,000 IU) CAPSULE PO SCH (09:00)
--- NOTE | 2023-01-29 09:14 | PN ---
PROGRESS NOTE DATE OF SERVICE: 01/27/2023 CHIEF COMPLAINT: Acute alcohol intoxication and DTs. HISTORY OF PRESENT ILLNESS: This gentleman is doing well. He is still a little bit shaky, but he is not vomiting. PHYSICAL EXAMINATION: VITAL SIGNS: Normal. CHEST: Clear. CARDIAC: Normal. ABDOMEN: Soft, nontender. IMPRESSION: 1. Acute alcohol intoxication. 2. Chronic alcoholism. 3. Pancreatitis. PLAN: Continue with regular diet and activity and monitoring his laboratory studies while he is inpatient. MMODL / IJN: [id number] /
== END 2023-01-27 18:33 | disposition home or self-care (01) ==
LOC: EC 18:54 → 6NMEDSUR 01-26 00:09
PROVIDERS: ADMIT Family Medicine; ATTEND Family Medicine
DX: K85.90 Acute pancreatitis without necrosis or infection, unspecified (principal); F10.229 Alcohol dependence with intoxication, unspecified; F10.231 Alcohol dependence with withdrawal delirium; E87.20 Acidosis, unspecified; E78.5 Hyperlipidemia, unspecified; E87.6 Hypokalemia; R06.02 Shortness of breath; R05.9 Cough, unspecified; G89.29 Other chronic pain; Y90.8 Blood alcohol level of 240 mg/100 ml or more; F17.210 Nicotine dependence, cigarettes, uncomplicated; Z11.52 Encounter for screening for COVID-19; Z79.899 Other long term (current) drug therapy; Z88.8 Allergy status to other drugs, medicaments and biological substances; Z82.49 Family history of ischemic heart disease and other diseases of the circulatory system; Z71.6 Tobacco abuse counseling
CPT/HCPCS: 96376 ×2; 96361 ×3; 96366 ×2; 96372 ×2; 96375 ×2; 96368; 96365; 99285; 36415; 93005; 85379; 80053 ×2; 82150; 82977; 83605 ×2; 83615; 83690 ×2; 83735 ×2; 84484; 85025 ×2; 85610; 85730; 81003; 80306; 87636; 71046; 74018; 74177; G0378 ×2; G0480; J1200; J1644 ×2; J2765; J3411 ×2; J3480; J2405 ×3; J3475; C9113 ×2; Q9967; 80320

== ENCOUNTER 2023-12-15 18:08 | Inpatient (IN) | payer MEDICARE, OTHER ==
[2023-12-15] MEDS: LORazepam 2 MG/ML INJ IV STA (20:03)
[2023-12-15] MEDS: SODIUM CHLORIDE 0.9% 1,000 ML IV STA (20:04)
[2023-12-15 20:28] LABS: Basophils % (A) 0 %; Eosinophils % (A) 0 %; HCT 42.1 % (39.0-53.0); HGB 14.6 gm/dL (13.0-17.5); Lymphocytes # (A) 1.9 k/uL (1.0-4.8); Lymphocytes % (A) 29 %; MCH 33.7 pg (25.0-35.0); MCHC 34.8 g/dL (31.0-37.0); MCV 96.8 fL (80.0-100.0); Mean Platelet Volume 7.5; Monocytes # (A) 0.2 k/uL (0-1.0); Monocytes % (A) 3 %; Neutrophils # (A) 4.4 k/uL (1.3-7.7); Neutrophils % (A) 67 %; Platelet Count 177 k/uL (150-450); RBC 4.35 m/uL (4.30-5.90); RDW 14.4 % (11.5-15.5); WBC 6.6 k/uL (3.8-10.6)
[2023-12-15 20:32] LABS: ALT 93 U/L (4-49); AST 134 U/L (17-59); African American GFR (CKD) >90 (>60 ml/min/1.73 sqM); Albumin 4.8 g/dL (3.5-5.0); Alkaline Phosphatase 129 U/L (38-126); Anion Gap 16 mmol/L; Blood Urea Nitrogen 13 mg/dL (9-20); Calcium 9.2 mg/dL (8.4-10.2); Carbon Dioxide 27 mmol/L (22-30); Chloride 90 mmol/L (98-107); Creatine Kinase 371 U/L (55-170); Glucose 122 mg/dL (74-99); Magnesium 1.5 mg/dL (1.6-2.3); Non-African American GFR(CKD) >90 (>60 ml/min/1.73 sqM); Potassium 4.3 mmol/L (3.5-5.1); Sodium 133 mmol/L (137-145); Total Bilirubin 0.9 mg/dL (0.2-1.3); Total Protein 7.7 g/dL (6.3-8.2)
--- NOTE | 2023-12-15 20:36 | CT ---
EXAMINATION TYPE: CT brain cspine wo con DATE OF EXAM: 12/15/2023 COMPARISON: None HISTORY: Seizure, fall from height of [address] DLP: Combined DLP of 2452.[address] Brain: Unenhanced CT of the brain was performed. The ventricles, basal cisterns and sulci overlying the cerebral convexities demonstrate a normal appe arance. There is no evidence for intracranial hemorrhage or sulcal effacement. No mass effects are seen. If symptoms persist consider MRI. Osseous calvarium is intact. IMPRESSION: No acute intracranial process CT Cervical Spine: Unenhanced CT of the cervical spine was performed with bone and soft tissue window settings submitted . Coronal and sagittal reconstruction is obtained. There is normal alignment and prevertebral soft tissues. I do not see evidence for fracture or sublu xation. No significant degenerative changes are present. The lung apices are clear. IMPRESSION: No evidence for acute fracture or subluxation of the cervical spine. [facility], , 12/15/2023 8:34 PM
--- NOTE | 2023-12-15 20:40 | CT ---
EXAMINATION TYPE: CT ChestAbdPelvis w con DATE OF EXAM: 12/15/2023 COMPARISON: None HISTORY: Seizure, fall from height of [address] DLP: Combined DLP of 2452.6 mGycm CONTRAST: Contrast enhanced Trauma CT of the Chest, Abdomen and Pelvis is performed with IV Contrast, patient i njected with 100ml mL of Isovue 300. Chest: LUNGS: There is no evidence for pneumothorax. The lungs are clear and free of focal contusion or ate lectasis. No pleural effusion MEDIASTINUM: Thoracic aorta is of normal caliber without CT evidence to suggest traumatic induced ao rtic injury. No mediastinal fluid or blood. No pericardial fluid or cardia abnormality. Small slidi ng-type hernia. HILAR STRUCTURES: No evidence for mass. No hilar adenopathy is appreciated. OTHER: No significant abnormality. OSSEOUS: No displaced osseous fractures identified. CT ABDOMEN AND PELVIS FINDINGS: LIVER/GB: No focal laceration, contusion or subcapsular hemorrhage. No calcified gallstones. No s pace occupying hepatic lesion. Biliary tree is of normal caliber. PANCREAS: No evidence for transection. No inflammation. No distinct mass. SPLEEN: No focal laceration, contusion or subcapsular hemorrhage. ADRENALS: No hemorrhage. No nodule. No thickening. KIDNEYS/BLADDER: No focal laceration, contusion or subcapsular hemorrhage. No hydronephrosis. No n ephrolithiasis. No disctinct renal mass. BOWEL: Bowel is intact. No evidence for pneumoperitoneum. GENITAL ORGANS: No gross abnormality. LYMPH NODES: No greater than 1cm abdominal or pelvic lymph nodes are appreciated. AORTA: No traumatic aortic injury visualized. OSSEOUS STRUCTURES: No displaced fracture seen. OTHER: No evidence for hemoperitoneum. IMPRESSION: 1. No evidence for traumatic injury to the chest. 2. No evidence for traumatic injury to the abdomen or pelvis. [facility], , 12/15/2023 8:37 PM
--- NOTE | 2023-12-15 20:42 | CT ---
EXAMINATION TYPE: CT thor lumbar spine w con DATE OF EXAM: 12/15/2023 COMPARISON: None HISTORY: Seizure, fall from height of [address] DLP: Combined DLP of 2452.6 mGycm Automated exposure control for dose reduction was used. CONTRAST: Performed with IV Contrast, patient injected with 100ml mL of Isovue 300. CT of the thoracic and lumbar spine was performed with bone and soft tissue windows submitted. Cisse l axial and sagittal images are submitted for review. FINDINGS: There is no evidence for thoracic or lumbar fracture. No evidence of malalignment. No paraspinal teddy eben or mass. This spaces are well preserved. No paraspinal soft tissue masses. Mild ventral spondylo sis. IMPRESSION: NO EVIDENCE FOR THORACIC OR LUMBAR FRACTURE AT THIS TIME. [facility], , 12/15/2023 8:40 PM
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
[2023-12-15] MEDS ORDERED: NALOXONE 0.4 MG/ML 1 ML VIAL IV PRN (20:56)
[2023-12-15] MEDS ORDERED: LORazepam 2 MG/ML INJ IV PRN (21:04)
[2023-12-15 21:19] LABS: Alcohol 267 mg/dL
[2023-12-15] MEDS: THIAMINE 100 MG TAB PO SCH (21:35)
[2023-12-15] MEDS: levETIRAcetam 500 MG TAB PO SCH (22:28)
[2023-12-15] MEDS: ONDANSETRON 4 MG/2 ML VIAL IVP SCH (23:22)
[2023-12-16] MEDS ORDERED: ALBUTEROL NEBULIZED 2.5 MG/3 ML INHALATION PRN (01:29)
[2023-12-16] MEDS: LORazepam 2 MG/ML INJ IV PRN ×2 (03:37→20:16)
[2023-12-16 05:15] LABS: Basophils % (A) 0 %; Eosinophils % (A) 1 %; HCT 35.8 % (39.0-53.0); HGB 12.1 gm/dL (13.0-17.5); Lymphocytes # (A) 1.8 k/uL (1.0-4.8); Lymphocytes % (A) 42 %; MCH 33.7 pg (25.0-35.0); MCHC 33.9 g/dL (31.0-37.0); MCV 99.5 fL (80.0-100.0); Mean Platelet Volume 7.4; Monocytes # (A) 0.2 k/uL (0-1.0); Monocytes % (A) 4 %; Neutrophils # (A) 2.2 k/uL (1.3-7.7); Neutrophils % (A) 52 %; Platelet Count 121 k/uL (150-450); RDW 13.9 % (11.5-15.5); WBC 4.2 k/uL (3.8-10.6)
[2023-12-16 05:29] LABS: African American GFR (CKD) >90 (>60 ml/min/1.73 sqM); Anion Gap 8 mmol/L; Blood Urea Nitrogen 13 mg/dL (9-20); Calcium 8.3 mg/dL (8.4-10.2); Carbon Dioxide 28 mmol/L (22-30); Chloride 97 mmol/L (98-107); Glucose 88 mg/dL (74-99); Non-African American GFR(CKD) >90 (>60 ml/min/1.73 sqM); Potassium 3.8 mmol/L (3.5-5.1); Sodium 133 mmol/L (137-145)
[2023-12-16] MEDS: GABAPENTIN 300 MG CAP PO SCH (08:05)
[2023-12-16] MEDS: ATOMOXETINE HCL 40 MG PO SCH (08:12)
[2023-12-16 14:37] VITALS: BMI 16.7
[2023-12-16] MEDS: POTASSIUM CHLORIDE ER 20 MEQ TAB.ER PO SCH (20:15)
[2023-12-16] MEDS: NICOTINE 21MG/24HR PATCH TRANSDERM STA (20:15)
--- NOTE | 2023-12-16 20:22 | PN ---
PROGRESS NOTE DATE OF SERVICE: 12/16/2023 CHIEF COMPLAINT: Alcohol withdrawal seizure, alcoholism, acute alcohol intoxication, and multiple contusions. HISTORY OF PRESENT ILLNESS: This gentleman is doing well. He is awake and alert and he is not tremulous. He has had no more seizures. PHYSICAL EXAMINATION: VITAL SIGNS: Normal. HEAD, EARS, EYES, NOSE AND MOUTH: Normal. CHEST: Clear. CARDIAC: Normal. ABDOMEN: Soft and nontender. IMPRESSION: 1. Acute alcohol-related grand mal seizure. 2. Fall with contusions of the back and hips. 3. Chronic alcoholism. 4. Impending delirium tremens. PLAN: Continue with [facility] protocol. MMGA / FIDELINAN: [id number] /
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
--- NOTE | 2023-12-17 22:14 | PN ---
PROGRESS NOTE DATE OF SERVICE: 12/17/2023 CHIEF COMPLAINT: Alcohol withdrawal seizures and alcoholism. HISTORY OF PRESENT ILLNESS: This gentleman is doing well. He is probably still in DTs. PHYSICAL EXAMINATION: VITAL SIGNS: Normal. CHEST: Clear. CARDIAC: Normal. ABDOMEN: Soft, nontender. IMPRESSION: 1. Acute alcohol intoxication. 2. Chronic alcoholism. 3. DTs. PLAN: Continue with management of his DTs. MMODL / IJN: [id number] /
[2023-12-18 07:26] VITALS: TEMP 98.1
[2023-12-18 14:40] VITALS: BP 120/73; PULSE 81; RESP 14
[2023-12-18] MEDS: NICOTINE 21MG/24HR PATCH TRANSDERM SCH (16:18)
--- NOTE | 2023-12-19 02:53 | PN ---
PROGRESS NOTE DATE OF SERVICE: 12/18/2023 CHIEF COMPLAINT: DTs. HISTORY OF PRESENT ILLNESS: This gentleman is doing a little bit better. Vital signs are normal. He is still slightly tremulous. PHYSICAL EXAMINATION: CHEST: Clear. CARDIAC: Normal. ABDOMEN: Soft, nontender. IMPRESSION: 1. Acute alcohol intoxication. 2. Delirium tremens. 3. Chronic alcoholism. PLAN: Continue with [facility] protocol for another day. MMODL / IJN: [id number] /
== END 2023-12-18 17:16 | disposition left against medical advice (07) | DRG 53 ==
LOC: EC 18:08 → 6NMEDSUR 21:04 → OBSVTOIN 12-16 08:44 → 6NMEDSUR 12-16 14:32 → 4SSUR 12-16 19:41 → 5NMEDONC 12-16 21:40
PROVIDERS: ADMIT Family Medicine; ATTEND Family Medicine
DX: G40.409 Other generalized epilepsy and epileptic syndromes, not intractable, without status epilepticus (principal); F10.229 Alcohol dependence with intoxication, unspecified; Z53.29 Procedure and treatment not carried out because of patient's decision for other reasons; F10.231 Alcohol dependence with withdrawal delirium; E78.5 Hyperlipidemia, unspecified; I10 Essential (primary) hypertension; F17.210 Nicotine dependence, cigarettes, uncomplicated; S20.229A Contusion of unspecified back wall of thorax, initial encounter; W17.89XA Other fall from one level to another, initial encounter; Z82.49 Family history of ischemic heart disease and other diseases of the circulatory system; Y90.8 Blood alcohol level of 240 mg/100 ml or more; Z71.41 Alcohol abuse counseling and surveillance of alcoholic
CPT/HCPCS: 36415; 70450; 71260; 72125; 72129; 72132; 74177; 80048; 80053; 80320; 82550; 83735; 85025; 93005; 96361; 96374; 96375; 99285

== ENCOUNTER → 2023-12-26 | Outpatient (CLI) | payer OTHER ==
--- NOTE | 2023-12-26 21:47 | MR ---
EXAMINATION TYPE: MR brain wo con DATE OF EXAM: 12/26/2023 9:27 PM COMPARISON: 10/12/2019. 09/05/2012 CLINICAL INDICATION: Male, 43 years old with history of R56.9, Seizures TECHNIQUE: Multi planar, multi sequence imaging was performed through the brain including: T1, T2, In version recovery, Diffusion weighted imaging, and gradient echo imaging. No gadolinium was given. FINDINGS: The dasilva-white junctions, ventricular system, basal cisterns appear unremarkable. Scattered foci of high T2 signal intensity are seen within the periventricular white matter. Midline structures show n o abnormality. Diffusion-weighted imaging shows no evidence of restricted diffusion. The susceptibili ty weighted images do not reveal any evidence for micro-hemorrhage. The bone marrow signal is within normal limits. Paranasal sinuses and mastoid air cells: No significant paranasal sinus disease. Visualized orbits: Orbital contents are intact. IMPRESSION: 1. No evidence of intracranial mass or acute/subacute infarct. 2. Scattered white matter changes no evidence for active demyelination. These are abnormal for patien t's age. Correlate for demyelination. [facility], , 12/26/2023 9:45 PM
== END | disposition home or self-care (01) ==
LOC: RADMRIMAIN 20:45
PROVIDERS: ATTEND Family Medicine
DX: R56.9 Unspecified convulsions (principal)
CPT/HCPCS: 70551